=== PATIENT | female | born 1985 | race Caucasian/White ===

== ENCOUNTER 2020-02-20 09:58 | Observation (INO) ==
[2020-02-20 10:33] LABS: Bilirubin,Urine Moderate (Negative); Blood,Urine Negative (Negative); Clarity,Urine Turbid (Clear); Color,Urine Orange (Yellow); Glucose,Urine (UA) 100 mg/dL (Normal); Ketones,Urine Trace mg/dL (Negative); Leukocyte Esterase,Urine Small (Negative); Nitrite,Urine Positive (Negative); PH,Urine 5.5 pH Units (5.0-8.0); Protein,Urine 100 mg/dL (Neg-Trace); Specific Gravity,Urine > 1.030 (1.010-1.025)
[2020-02-20 10:37] LABS: Squamous Epithelial Cell,Urine Many per lpf (None-Few)
[2020-02-20 10:47] LABS: Basophils % 0.1 %; Hematocrit 37.2 % (35.3-44.9); Immature Granulocytes % 0.8 % (0-4); Lymphocytes # 1.1 K/mcL (0.6-4.6); Mean Corpuscular HGB Conc 32.5 g/dL (31.6-35.5); Mean Corpuscular Hemoglobin 28.8 pg (28.0-33.3); Mean Corpuscular Volume 88.6 fL (83.0-100.0); Mean Platelet Volume 10.5 fL (9.4-12.4); Monocytes % 9.7 %; Neutrophils # 17.6 K/mcL (1.6-8.9); Platelet Count 305 K/mcL (140-400); Red Cell Distribution Width 13.9 % (11.5-14.5); Segmented Neutrophils % 84.4 %; White Blood Count 20.8 K/mcL (4.3-11.1)
[2020-02-20 10:56] LABS: WBC,Urine 30-50 per hpf (0-3)
[2020-02-20 10:57] LABS: Bacteria,Urine Many per hpf (None-Few); RBC,Urine 0-3 per hpf (0-3)
[2020-02-20 11:03] LABS: Hemoglobin 12.1 g/dL (11.5-15.4)
[2020-02-20 11:17] LABS: Alanine Aminotransferase 7 Units/L (7-52); Albumin 3.4 g/dL (3.5-5.7); Albumin/Globulin Ratio 0.8 (1.1-2.2); Alkaline Phosphatase 131 Units/L (34-104); Amylase < 10 Units/L (29-103); Aspartate Amino Transferase 10 Units/L (13-39); BUN/Creatinine Ratio 6 (6-26); Bilirubin,Direct 0.4 mg/dL (0.0-0.2); Bilirubin,Indirect 0.3 mg/dL (0.0-1.0); Bilirubin,Total 0.7 mg/dL (0.3-1.0); Blood Urea Nitrogen 4 mg/dL (6-20); Calcium 9.1 mg/dL (8.6-10.3); Carbon Dioxide 29 mEq/L (23-29); Chloride 94 mEq/L (98-107); Globulin 4.2 g/dL (2.4-3.5); Glucose 131 mg/dL (70-105); Lipase 5 Units/L (11-82); Osmolality,Calculated 273 (280-300); Potassium 2.8 mEq/L (3.5-5.1); Sodium 132 mEq/L (136-145); Total Protein 7.6 g/dL (6.4-8.9); eGFR For African Americans > 60 (> 60); eGFR For Non-African Americans > 60 (> 60)
[2020-02-20] MEDS ORDERED: 0.9 % Sodium Chloride 1,000 ML IVC ONE (11:18)
[2020-02-20] MEDS ORDERED: Ondansetron 4 MG/2 ML VIAL IVP ONE ×2 (11:18→15:59)
[2020-02-20] MEDS ORDERED: Potassium Effervescent 25 MEQ TABLET.EFF PO ONE (11:18)
[2020-02-20] MEDS ORDERED: Isovue-370 500 ML BOTTLE IVP ONE (11:19)
[2020-02-20] MEDS ORDERED: cefTRIAXone 1,000 MG in 0.9 % Sodium Chloride Mini Bag 100 ML IVPB ONE (12:23)
[2020-02-20] MEDS ORDERED: Piperacillin/Tazobactam 3.375 GM in 0.9 % Sodium Chloride Mini Bag 100 ML IVPB ONE (12:31)
[2020-02-20] MEDS ORDERED: *HR* FentaNYL (PF) 100 MCG/2 ML VIAL ONE ×2 (14:29→17:32)
[2020-02-20] MEDS ORDERED: Lidocaine HCL 4 ML Topical Solution (Laryng-O-Jet Kit Sterile Pak) TP ONE (14:29)
[2020-02-20] MEDS ORDERED: *HR* Rocuronium Bromide 50 MG/5 ML VIAL ONE (14:29)
[2020-02-20] MEDS ORDERED: *HR* Midazolam HCl 2 MG/2 ML VIAL ONE (14:29)
[2020-02-20] MEDS ORDERED: *HR* Propofol 200 MG/20 ML VIAL IVP ONE (14:29)
[2020-02-20] MEDS ORDERED: Dexamethasone 4 MG/ML VIAL ONE (14:29)
[2020-02-20] MEDS ORDERED: Lidocaine -MPF 2% 2 ML VIAL ONE (14:29)
[2020-02-20] MEDS ORDERED: Ondansetron 4 MG/2 ML VIAL ONE (14:29)
[2020-02-20] MEDS ORDERED: *HR* OxyCODONE Immed Rel 5 MG TABLET PO PRN (15:59)
[2020-02-20] MEDS ORDERED: Ketorolac 30 MG/ML VIAL ONE (16:42)
[2020-02-20] MEDS ORDERED: Acetaminophen IV 1,000 MG/100 ML INFUS..BTL ONE (18:27)
[2020-02-20] MEDS: *HR* HYDROmorphone PF 0.5 MG/0.5 ML SYRINGE IVP PRN ×3 (18:55→19:15)
[2020-02-20] MEDS: 0.9 % Sodium Chloride 1,000 ML IVC SCH (20:41)
[2020-02-21] MEDS: Ampicillin/Sulbactam 3,000 MG in 0.9 % Sodium Chloride Mini Bag 100 ML IVPB SCH ×4 (00:12→17:13)
[2020-02-21] MEDS: Ketorolac 15 MG/ML VIAL IVP SCH ×4 (00:12→17:14)
[2020-02-21] MEDS: *HR* OxyCODONE/APAP 5/325 TABLET PO PRN ×2 (04:27→09:31)
[2020-02-21] MEDS: 0.9 % Sodium Chloride 1,000 ML IVC SCH ×3 (05:09→22:26)
[2020-02-21 07:47] LABS: Basophils % 0.1 %; Hematocrit 32.1 % (35.3-44.9); Immature Granulocytes % 0.7 % (0-4); Lymphocytes # 0.8 K/mcL (0.6-4.6); Mean Corpuscular HGB Conc 31.5 g/dL (31.6-35.5); Mean Corpuscular Hemoglobin 28.7 pg (28.0-33.3); Mean Corpuscular Volume 91.2 fL (83.0-100.0); Mean Platelet Volume 11.3 fL (9.4-12.4); Monocytes # 0.6 K/mcL (0.0-1.3); Monocytes % 4.1 %; Neutrophils # 13.5 K/mcL (1.6-8.9); Platelet Count 249 K/mcL (140-400); Red Blood Count 3.52 M/mcL (3.82-4.97); Red Cell Distribution Width 14.3 % (11.5-14.5); Segmented Neutrophils % 90.1 %; White Blood Count 14.9 K/mcL (4.3-11.1)
[2020-02-21 07:49] LABS: Hemoglobin 10.1 g/dL (11.5-15.4)
[2020-02-21] MEDS: Pantoprazole 40 MG VIAL IVP SCH (09:31)
[2020-02-22] MEDS: Ampicillin/Sulbactam 3,000 MG in 0.9 % Sodium Chloride Mini Bag 100 ML IVPB SCH ×2 (00:19→05:51)
[2020-02-22] MEDS: Ketorolac 15 MG/ML VIAL IVP SCH ×2 (00:19→05:51)
[2020-02-22] MEDS: *HR* OxyCODONE/APAP 5/325 TABLET PO PRN ×2 (01:01→09:14)
[2020-02-22 07:38] LABS: Basophils % 0.2 %; Hematocrit 31.3 % (35.3-44.9); Hemoglobin 10.1 g/dL (11.5-15.4); Immature Granulocytes % 1.3 % (0-4); Lymphocytes # 1.2 K/mcL (0.6-4.6); Lymphocytes % 11.1 %; Mean Corpuscular HGB Conc 32.3 g/dL (31.6-35.5); Mean Corpuscular Volume 89.9 fL (83.0-100.0); Mean Platelet Volume 10.4 fL (9.4-12.4); Monocytes # 0.9 K/mcL (0.0-1.3); Monocytes % 7.7 %; Neutrophils # 8.8 K/mcL (1.6-8.9); Platelet Count 276 K/mcL (140-400); Red Blood Count 3.48 M/mcL (3.82-4.97); Red Cell Distribution Width 14.3 % (11.5-14.5); Segmented Neutrophils % 79.7 %
[2020-02-22 07:47] VITALS: BP 127/83
[2020-02-22] MEDS: Pantoprazole 40 MG VIAL IVP SCH (09:14)
== END 2020-02-22 12:24 | disposition home or self-care (01) ==
LOC: EMEROOARM 09:58 → 3ANU 09:58
PROVIDERS: ADMIT Surgery; ATTEND Surgery

== ENCOUNTER 2020-03-03 19:49 | Inpatient (IN) ==
[2020-03-03] MEDS ORDERED: 0.9 % Sodium Chloride 1,000 ML IVC ONE (20:04)
[2020-03-03] MEDS ORDERED: Isovue-370 500 ML BOTTLE IVP ONE (20:05)
[2020-03-03] MEDS ORDERED: 0.9 % Sodium Chloride 1,000 ML ONE (20:10)
[2020-03-03] MEDS ORDERED: *HR* FentaNYL (PF) 100 MCG/2 ML VIAL IVP ONE (20:23)
[2020-03-03] MEDS ORDERED: Ondansetron 4 MG/2 ML VIAL IVP STA (20:23)
[2020-03-03 20:26] LABS: Bilirubin,Urine Negative (Negative); Blood,Urine Negative (Negative); Clarity,Urine Clear (Clear); Color,Urine Yellow (Yellow); Glucose,Urine (UA) Normal (Normal); Ketones,Urine Negative (Negative); Leukocyte Esterase,Urine Moderate (Negative); Nitrite,Urine Negative (Negative); PH,Urine 7.5 pH Units (5.0-8.0); Protein,Urine Negative (Neg-Trace); Specific Gravity,Urine 1.017 (1.010-1.025); Urobilinogen,Urine Normal (Normal)
[2020-03-03 20:28] LABS: Bacteria,Urine None Seen per hpf (None-Few); Hyaline Casts,Urine None Seen per lpf (None-Few); Squamous Epithelial Cell,Urine Many per lpf (None-Few); WBC,Urine 15-30 per hpf (0-3)
[2020-03-03 20:34] LABS: Basophils % 0.1 %; Eosinophils % 0.2 %; Hematocrit 37.9 % (35.3-44.9); Hemoglobin 11.7 g/dL (11.5-15.4); Immature Granulocytes % 0.6 % (0-4); Lymphocytes # 1.4 K/mcL (0.6-4.6); Lymphocytes % 7.5 %; Mean Corpuscular HGB Conc 30.9 g/dL (31.6-35.5); Mean Corpuscular Hemoglobin 27.9 pg (28.0-33.3); Mean Corpuscular Volume 90.2 fL (83.0-100.0); Mean Platelet Volume 10.6 fL (9.4-12.4); Monocytes # 0.9 K/mcL (0.0-1.3); Monocytes % 5.2 %; Neutrophils # 15.7 K/mcL (1.6-8.9); Platelet Count 497 K/mcL (140-400); Red Cell Distribution Width 15.1 % (11.5-14.5); Segmented Neutrophils % 86.4 %; White Blood Count 18.2 K/mcL (4.3-11.1)
[2020-03-03 20:41] LABS: INR 1.2; Prothrombin Time 13.3 Seconds (9.4-12.1)
[2020-03-03 20:44] LABS: RBC,Urine 0-3 per hpf (0-3)
[2020-03-03 20:44] LABS: Activated Partial Thrombo Time 33.1 Seconds (26.0-36.0)
[2020-03-03 21:00] LABS: Alanine Aminotransferase 29 Units/L (7-52); Albumin 3.5 g/dL (3.5-5.7); Albumin/Globulin Ratio 0.8 (1.1-2.2); Alkaline Phosphatase 196 Units/L (34-104); Aspartate Amino Transferase 49 Units/L (13-39); BUN/Creatinine Ratio 15 (6-26); Bilirubin,Direct 0.3 mg/dL (0.0-0.2); Bilirubin,Indirect 0.2 mg/dL (0.0-1.0); Bilirubin,Total 0.5 mg/dL (0.3-1.0); Blood Urea Nitrogen 7 mg/dL (6-20); Carbon Dioxide 23 mEq/L (23-29); Chloride 99 mEq/L (98-107); Globulin 4.6 g/dL (2.4-3.5); Glucose 104 mg/dL (70-105); Lipase 16 Units/L (11-82); Magnesium 1.8 mg/dL (1.6-2.6); Osmolality,Calculated 266 (280-300); Phosphorous 2.7 mg/dL (2.7-4.5); Potassium 3.9 mEq/L (3.5-5.1); Sodium 129 mEq/L (136-145); Total Protein 8.1 g/dL (6.4-8.9); Troponin I < 0.03 ng/mL (< 0.04); eGFR For African Americans > 60 (> 60); eGFR For Non-African Americans > 60 (> 60)
[2020-03-03] MEDS ORDERED: 0.9 % Sodium Chloride 1,000 ML IVC STA (21:29)
[2020-03-03] MEDS ORDERED: Piperacillin/Tazobactam 3.375 GM in 0.9 % Sodium Chloride Mini Bag 100 ML IVPB ONE (21:51)
[2020-03-03] MEDS ORDERED: Ibuprofen 800 MG TABLET PO ONE (22:54)
[2020-03-03] MEDS ORDERED: Ibuprofen 600 MG TABLET PO PRN (23:04)
[2020-03-03] MEDS ORDERED: 0.9 % Sodium Chloride 1,000 ML IVC SCH (23:30)
[2020-03-03] MEDS: *HR* OxyCODONE/APAP 10/325 TABLET PO PRN (23:52)
[2020-03-04 01:27] LABS: Basophils % 0.2 %; Eosinophils % 0.1 %; Hematocrit 32.2 % (35.3-44.9); Immature Granulocytes % 0.6 % (0-4); Lymphocytes # 1.6 K/mcL (0.6-4.6); Lymphocytes % 9.6 %; Mean Corpuscular HGB Conc 31.4 g/dL (31.6-35.5); Mean Corpuscular Hemoglobin 27.7 pg (28.0-33.3); Mean Corpuscular Volume 88.2 fL (83.0-100.0); Mean Platelet Volume 10.7 fL (9.4-12.4); Monocytes # 1.1 K/mcL (0.0-1.3); Monocytes % 6.2 %; Neutrophils # 14.1 K/mcL (1.6-8.9); Platelet Count 431 K/mcL (140-400); Red Blood Count 3.65 M/mcL (3.82-4.97); Red Cell Distribution Width 15.1 % (11.5-14.5); Segmented Neutrophils % 83.3 %
[2020-03-04 01:28] LABS: Hemoglobin 10.1 g/dL (11.5-15.4)
[2020-03-04 01:30] LABS: BUN/Creatinine Ratio 15 (6-26); Blood Urea Nitrogen 6 mg/dL (6-20); Calcium 7.9 mg/dL (8.6-10.3); Carbon Dioxide 20 mEq/L (23-29); Chloride 104 mEq/L (98-107); Glucose 96 mg/dL (70-105); Osmolality,Calculated 269 (280-300); Potassium 3.9 mEq/L (3.5-5.1); Sodium 131 mEq/L (136-145); eGFR For African Americans > 60 (> 60); eGFR For Non-African Americans > 60 (> 60)
[2020-03-04] MEDS: Piperacillin/Tazobactam 3.375 GM in 0.9 % Sodium Chloride Mini Bag 100 ML IVPB SCH ×4 (04:29→21:02)
[2020-03-04] MEDS ORDERED: 0.9 % Sodium Chloride 500 ML ONE (10:05)
[2020-03-04] MEDS ORDERED: *HR* FentaNYL (PF) 100 MCG/2 ML VIAL IVP ONE (10:23)
[2020-03-04] MEDS ORDERED: *HR* Midazolam HCl 2 MG/2 ML VIAL IVP ONE (10:23)
[2020-03-04] MEDS: Pantoprazole 40 MG VIAL IVP SCH (11:38)
[2020-03-04] MEDS: *HR* OxyCODONE/APAP 10/325 TABLET PO PRN ×3 (11:44→23:53)
[2020-03-04] MEDS: *HR* Heparin 5,000 UNIT/ML VIAL SQ SCH (16:47)
[2020-03-05] MEDS: Piperacillin/Tazobactam 3.375 GM in 0.9 % Sodium Chloride Mini Bag 100 ML IVPB SCH ×4 (03:39→23:40)
[2020-03-05] MEDS: *HR* Heparin 5,000 UNIT/ML VIAL SQ SCH ×2 (05:39→18:37)
[2020-03-05] MEDS: *HR* OxyCODONE/APAP 10/325 TABLET PO PRN (05:48)
[2020-03-05] MEDS: Ondansetron 4 MG/2 ML VIAL IVP PRN ×2 (05:48→19:26)
[2020-03-05 05:55] LABS: Basophils % 0.1 %; Eosinophils % 0.4 %; Hematocrit 30.5 % (35.3-44.9); Hemoglobin 9.9 g/dL (11.5-15.4); Immature Granulocytes % 0.4 % (0-4); Lymphocytes # 0.8 K/mcL (0.6-4.6); Lymphocytes % 8.4 %; Mean Corpuscular HGB Conc 32.5 g/dL (31.6-35.5); Mean Corpuscular Hemoglobin 28.4 pg (28.0-33.3); Mean Corpuscular Volume 87.6 fL (83.0-100.0); Monocytes # 0.8 K/mcL (0.0-1.3); Monocytes % 7.9 %; Neutrophils # 8.3 K/mcL (1.6-8.9); Platelet Count 375 K/mcL (140-400); Red Blood Count 3.48 M/mcL (3.82-4.97); Red Cell Distribution Width 15.1 % (11.5-14.5); Segmented Neutrophils % 82.8 %
[2020-03-05 06:14] LABS: BUN/Creatinine Ratio 7 (6-26); Blood Urea Nitrogen 3 mg/dL (6-20); Calcium 8.4 mg/dL (8.6-10.3); Carbon Dioxide 23 mEq/L (23-29); Chloride 97 mEq/L (98-107); Glucose 122 mg/dL (70-105); Osmolality,Calculated 262 (280-300); Potassium 3.7 mEq/L (3.5-5.1); Sodium 127 mEq/L (136-145); eGFR For African Americans > 60 (> 60); eGFR For Non-African Americans > 60 (> 60)
[2020-03-05] MEDS: Pantoprazole 40 MG VIAL IVP SCH (09:17)
[2020-03-05] MEDS: polyethylene glycoL 3350 17 GM POWD.PACK PO SCH (11:46)
[2020-03-05] MEDS: Acetaminophen 325 MG TABLET PO PRN (19:26)
[2020-03-06] MEDS: *HR* Heparin 5,000 UNIT/ML VIAL SQ SCH ×2 (05:45→17:26)
[2020-03-06] MEDS: Piperacillin/Tazobactam 3.375 GM in 0.9 % Sodium Chloride Mini Bag 100 ML IVPB SCH ×3 (05:45→17:25)
[2020-03-06 06:55] LABS: Basophils % 0.2 %; Eosinophils # 0.1 K/mcL (0.0-0.6); Eosinophils % 1.6 %; Hematocrit 34.7 % (35.3-44.9); Hemoglobin 10.7 g/dL (11.5-15.4); Immature Granulocytes % 0.2 % (0-4); Lymphocytes # 1.1 K/mcL (0.6-4.6); Lymphocytes % 24.7 %; Mean Corpuscular HGB Conc 30.8 g/dL (31.6-35.5); Mean Corpuscular Hemoglobin 27.3 pg (28.0-33.3); Mean Corpuscular Volume 88.5 fL (83.0-100.0); Mean Platelet Volume 12.2 fL (9.4-12.4); Monocytes # 0.6 K/mcL (0.0-1.3); Monocytes % 13.3 %; Platelet Count 301 K/mcL (140-400); Red Blood Count 3.92 M/mcL (3.82-4.97)
[2020-03-06 07:00] LABS: Neutrophils # 2.6 K/mcL (1.6-8.9); White Blood Count 4.4 K/mcL (4.3-11.1)
[2020-03-06 07:13] LABS: BUN/Creatinine Ratio 9 (6-26); Blood Urea Nitrogen 4 mg/dL (6-20); Carbon Dioxide 26 mEq/L (23-29); Chloride 101 mEq/L (98-107); Glucose 114 mg/dL (70-105); Osmolality,Calculated 276 (280-300); Potassium 3.9 mEq/L (3.5-5.1); Sodium 134 mEq/L (136-145); eGFR For African Americans > 60 (> 60); eGFR For Non-African Americans > 60 (> 60)
[2020-03-06] MEDS: Pantoprazole 40 MG VIAL IVP SCH (08:20)
[2020-03-06] MEDS: polyethylene glycoL 3350 17 GM POWD.PACK PO SCH (08:20)
[2020-03-06] MEDS: Acetaminophen 325 MG TABLET PO PRN (17:28)
[2020-03-07] MEDS: Piperacillin/Tazobactam 3.375 GM in 0.9 % Sodium Chloride Mini Bag 100 ML IVPB SCH ×2 (00:27→07:50)
[2020-03-07] MEDS: *HR* Heparin 5,000 UNIT/ML VIAL SQ SCH (05:50)
[2020-03-07 07:42] VITALS: BP 129/79
[2020-03-07] MEDS: Pantoprazole 40 MG VIAL IVP SCH (07:51)
[2020-03-07] MEDS: polyethylene glycoL 3350 17 GM POWD.PACK PO SCH (07:51)
[2020-03-07] MEDS ORDERED: Sulfamethoxazole/Trimeth DS 1 EACH TABLET PO ONE (09:17)
== END 2020-03-07 10:43 | disposition home or self-care (01) | DRG 721 ==
LOC: 3ANU 19:49 → EMEROOARM 19:49 → 3ANU 23:06
PROVIDERS: ADMIT Surgery; ATTEND Nurse Practitioner Family
PROC: IRDRAIN (2020-03-04 10:00)

== ENCOUNTER 2020-04-29 23:05 | Observation (INO) ==
[2020-04-29] MEDS ORDERED: 0.9 % Sodium Chloride 1,000 ML IVC ONE (23:37)
[2020-04-29] MEDS ORDERED: Isovue-370 500 ML BOTTLE IVP ONE (23:43)
[2020-04-30 00:49] LABS: Alanine Aminotransferase 7 Units/L (7-52); Albumin 3.6 g/dL (3.5-5.7); Albumin/Globulin Ratio 0.9 (1.1-2.2); Alkaline Phosphatase 109 Units/L (34-104); Aspartate Amino Transferase 34 Units/L (13-39); BUN/Creatinine Ratio 18 (6-26); Bilirubin,Indirect 0.3 mg/dL (0.0-1.0); Bilirubin,Total 0.3 mg/dL (0.3-1.0); Blood Urea Nitrogen 9 mg/dL (6-20); Calcium 9.4 mg/dL (8.6-10.3); Carbon Dioxide 21 mEq/L (23-29); Chloride 103 mEq/L (98-107); Globulin 4.1 g/dL (2.4-3.5); Glucose 95 mg/dL (70-105); Lipase 35 Units/L (11-82); Osmolality,Calculated 278 (280-300); Potassium 4.7 mEq/L (3.5-5.1); Sodium 135 mEq/L (136-145); Total Protein 7.7 g/dL (6.4-8.9); eGFR For African Americans > 60 (> 60); eGFR For Non-African Americans > 60 (> 60)
[2020-04-30 01:08] LABS: Bacteria,Urine Few per hpf (None-Few); Bilirubin,Urine Negative (Negative); Blood,Urine Moderate (Negative); Clarity,Urine Clear (Clear); Color,Urine Light-Yellow (Yellow); Glucose,Urine (UA) Normal (Normal); Ketones,Urine Negative (Negative); Leukocyte Esterase,Urine Negative (Negative); Nitrite,Urine Negative (Negative); Protein,Urine Negative (Neg-Trace); RBC,Urine 0-3 per hpf (0-3); Specific Gravity,Urine 1.009 (1.010-1.025); Squamous Epithelial Cell,Urine Few per hpf (None-Few); Urobilinogen,Urine Normal (Normal)
[2020-04-30 01:32] LABS: Basophils % 0.2 %; Eosinophils # 0.2 K/mcL (0.0-0.6); Eosinophils % 1.2 %; Hematocrit 38.6 % (35.3-44.9); Hemoglobin 12.5 g/dL (11.5-15.4); Immature Granulocytes % 0.4 % (0-4); Lymphocytes # 2.5 K/mcL (0.6-4.6); Lymphocytes % 20.5 %; Mean Corpuscular HGB Conc 32.4 g/dL (31.6-35.5); Mean Corpuscular Hemoglobin 27.8 pg (28.0-33.3); Mean Platelet Volume 10.5 fL (9.4-12.4); Monocytes # 0.9 K/mcL (0.0-1.3); Monocytes % 7.3 %; Neutrophils # 8.5 K/mcL (1.6-8.9); Platelet Count 279 K/mcL (140-400); Red Blood Count 4.49 M/mcL (3.82-4.97); Red Cell Distribution Width 14.9 % (11.5-14.5); Segmented Neutrophils % 70.4 %; White Blood Count 12.1 K/mcL (4.3-11.1)
[2020-04-30] MEDS ORDERED: Piperacillin/Tazobactam 3.375 GM in 0.9 % Sodium Chloride Mini Bag 100 ML IVPB ONE (03:14)
[2020-04-30] MEDS ORDERED: Vancomycin 1,750 MG/517.5 ML IV.SOLN IVPB ONE (04:00)
[2020-04-30] MEDS ORDERED: Naloxone 0.4 MG/ML INJ IVP PRN (05:10)
[2020-04-30 05:30] LABS: Prothrombin Time 11.5 Seconds (9.4-12.1)
[2020-04-30 05:33] LABS: Activated Partial Thrombo Time 32.3 Seconds (26.0-36.0)
[2020-04-30] MEDS ORDERED: *HR* Promethazine 25 MG/ML VIAL IVP PRN (06:00)
[2020-04-30] MEDS: 0.9 % Sodium Chloride 1,000 ML IVC SCH ×2 (06:49→15:53)
[2020-04-30] MEDS: Nicotine 7 MG PATCH.TD24 TD SCH (08:33)
[2020-04-30] MEDS: Piperacillin/Tazobactam 3.375 GM in 0.9 % Sodium Chloride Mini Bag 100 ML IVPB SCH ×2 (11:43→17:36)
[2020-04-30] MEDS ORDERED: Aminoglycoside Consult 1 EACH MC ONE (15:31)
[2020-04-30] MEDS: Vancomycin 1,250 MG/262.5 ML IV.SOLN IVPB SCH (15:51)
[2020-04-30] MEDS: *HR* OxyCODONE Immed Rel 5 MG TABLET PO PRN (17:36)
[2020-05-01] MEDS: *HR* OxyCODONE Immed Rel 5 MG TABLET PO PRN (00:15)
[2020-05-01] MEDS: Vancomycin 1,250 MG/262.5 ML IV.SOLN IVPB SCH (03:38)
[2020-05-01] MEDS: Piperacillin/Tazobactam 3.375 GM in 0.9 % Sodium Chloride Mini Bag 100 ML IVPB SCH ×2 (03:38→11:28)
[2020-05-01 07:16] LABS: Basophils % 0.2 %; Eosinophils # 0.1 K/mcL (0.0-0.6); Eosinophils % 0.9 %; Hematocrit 34.5 % (35.3-44.9); Immature Granulocytes % 0.2 % (0-4); Lymphocytes # 1.9 K/mcL (0.6-4.6); Mean Corpuscular HGB Conc 31.9 g/dL (31.6-35.5); Mean Corpuscular Hemoglobin 27.6 pg (28.0-33.3); Mean Corpuscular Volume 86.5 fL (83.0-100.0); Mean Platelet Volume 10.9 fL (9.4-12.4); Monocytes # 0.8 K/mcL (0.0-1.3); Neutrophils # 6.6 K/mcL (1.6-8.9); Platelet Count 231 K/mcL (140-400); Red Blood Count 3.99 M/mcL (3.82-4.97); Red Cell Distribution Width 15.1 % (11.5-14.5); Segmented Neutrophils % 70.7 %; White Blood Count 9.4 K/mcL (4.3-11.1)
[2020-05-01 07:22] LABS: INR 1.1; Prothrombin Time 12.3 Seconds (9.4-12.1)
[2020-05-01] MEDS: Nicotine 7 MG PATCH.TD24 TD SCH (07:35)
[2020-05-01 08:05] LABS: BUN/Creatinine Ratio 12 (6-26); Blood Urea Nitrogen 6 mg/dL (6-20); Calcium 8.3 mg/dL (8.6-10.3); Carbon Dioxide 22 mEq/L (23-29); Chloride 103 mEq/L (98-107); Glucose 99 mg/dL (70-105); Magnesium 1.8 mg/dL (1.6-2.6); Osmolality,Calculated 272 (280-300); Phosphorous 2.8 mg/dL (2.7-4.5); Potassium 3.3 mEq/L (3.5-5.1); Sodium 132 mEq/L (136-145); eGFR For African Americans > 60 (> 60); eGFR For Non-African Americans > 60 (> 60)
[2020-05-01] MEDS ORDERED: Potassium Chloride Elixir 20 MEQ/15 ML UDC PO ONE (08:22)
[2020-05-01 10:46] VITALS: BP 105/71
[2020-05-01] MEDS ORDERED: Acetaminophen 325 MG TABLET PO PRN (11:52)
== END 2020-05-01 15:32 | disposition home or self-care (01) ==
LOC: EMEROOARM 23:05 → 3ANU 23:05 → SUATTDRO 04-30 03:58 → 3ANU 04-30 04:37
PROVIDERS: ADMIT Student in an Organized Health Care Education/Training Program; ATTEND Internal Medicine

== ENCOUNTER 2020-09-13 12:01 | Inpatient (IN) ==
[2020-09-13 12:38] LABS: Bilirubin,Urine Negative (Negative); Blood,Urine Negative (Negative); Clarity,Urine Clear (Clear); Color,Urine Light-Yellow (Yellow); Glucose,Urine (UA) Normal (Normal); Ketones,Urine Negative (Negative); Leukocyte Esterase,Urine Negative (Negative); Nitrite,Urine Negative (Negative); Protein,Urine Negative (Neg-Trace); Urobilinogen,Urine Normal (Normal)
[2020-09-13] MEDS ORDERED: 0.9 % Sodium Chloride 1,000 ML IVC ONE (12:49)
[2020-09-13] MEDS ORDERED: Ketorolac 30 MG/ML VIAL IVP ONE (12:49)
[2020-09-13] MEDS ORDERED: Ondansetron 4 MG/2 ML VIAL IVP ONE (12:49)
[2020-09-13 13:36] LABS: Alanine Aminotransferase 8 Units/L (7-52); Albumin 3.4 g/dL (3.5-5.7); Albumin/Globulin Ratio 0.8 (1.1-2.2); Alkaline Phosphatase 141 Units/L (34-104); Amylase 22 Units/L (29-103); Aspartate Amino Transferase 14 Units/L (13-39); BUN/Creatinine Ratio 5 (6-26); Bilirubin,Indirect 0.2 mg/dL (0.0-1.0); Bilirubin,Total 0.2 mg/dL (0.3-1.0); Blood Urea Nitrogen 3 mg/dL (6-20); Carbon Dioxide 26 mEq/L (23-29); Chloride 102 mEq/L (98-107); Globulin 4.2 g/dL (2.4-3.5); Glucose 82 mg/dL (70-105); Lipase 6 Units/L (11-82); Osmolality,Calculated 278 (280-300); Potassium 3.2 mEq/L (3.5-5.1); Sodium 136 mEq/L (136-145); Total Protein 7.6 g/dL (6.4-8.9); eGFR For African Americans > 60 (> 60); eGFR For Non-African Americans > 60 (> 60)
[2020-09-13 13:39] LABS: Basophils % 0.2 %; Eosinophils # 0.1 K/mcL (0.0-0.6); Eosinophils % 0.9 %; Hematocrit 39.9 % (35.3-44.9); Hemoglobin 12.2 g/dL (11.5-15.4); Immature Granulocytes % 0.3 % (0-4); Lymphocytes # 1.1 K/mcL (0.6-4.6); Lymphocytes % 11.5 %; Mean Corpuscular HGB Conc 30.6 g/dL (31.6-35.5); Mean Corpuscular Volume 84.9 fL (83.0-100.0); Mean Platelet Volume 10.2 fL (9.4-12.4); Monocytes # 0.7 K/mcL (0.0-1.3); Monocytes % 7.4 %; Neutrophils # 7.3 K/mcL (1.6-8.9); Platelet Count 417 K/mcL (140-400); Red Cell Distribution Width 14.8 % (11.5-14.5); Segmented Neutrophils % 79.7 %; White Blood Count 9.2 K/mcL (4.3-11.1)
[2020-09-13] MEDS ORDERED: Piperacillin/Tazobactam 3.375 GM in 0.9 % Sodium Chloride Mini Bag 100 ML IVPB ONE (15:47)
[2020-09-13] MEDS ORDERED: Ondansetron 4 MG/2 ML VIAL IVP PRN (15:48)
[2020-09-13] MEDS ORDERED: Naloxone 0.4 MG/ML INJ IVP PRN (15:48)
[2020-09-13] MEDS ORDERED: Potassium Chloride Elixir 20 MEQ/15 ML UDC PO SCH (16:00)
[2020-09-13] MEDS ORDERED: Isovue-370 500 ML BOTTLE IVP ONE (16:42)
[2020-09-13] MEDS: Nicotine 21 MG PATCH.TD24 TD SCH (18:47)
[2020-09-13 18:54] LABS: INR 1.2; Prothrombin Time 13.9 Seconds (9.4-12.1)
[2020-09-13] MEDS: Piperacillin/Tazobactam 3.375 GM in 0.9 % Sodium Chloride Mini Bag 100 ML IVPB SCH (22:28)
[2020-09-13] MEDS: Ketorolac 15 MG/ML VIAL IVP PRN (22:41)
[2020-09-14] MEDS: Piperacillin/Tazobactam 3.375 GM in 0.9 % Sodium Chloride Mini Bag 100 ML IVPB SCH ×3 (05:57→22:42)
[2020-09-14] MEDS: Ketorolac 15 MG/ML VIAL IVP PRN ×3 (09:26→23:57)
[2020-09-14] MEDS: Nicotine 21 MG PATCH.TD24 TD SCH (09:26)
[2020-09-14 10:03] LABS: Basophils % 0.2 %; Eosinophils # 0.1 K/mcL (0.0-0.6); Hematocrit 35.8 % (35.3-44.9); Immature Granulocytes % 0.4 % (0-4); Lymphocytes # 1.3 K/mcL (0.6-4.6); Lymphocytes % 13.2 %; Mean Corpuscular HGB Conc 29.6 g/dL (31.6-35.5); Mean Corpuscular Hemoglobin 25.1 pg (28.0-33.3); Mean Corpuscular Volume 84.8 fL (83.0-100.0); Mean Platelet Volume 9.8 fL (9.4-12.4); Monocytes # 0.8 K/mcL (0.0-1.3); Monocytes % 7.5 %; Neutrophils # 7.8 K/mcL (1.6-8.9); Platelet Count 348 K/mcL (140-400); Red Blood Count 4.22 M/mcL (3.82-4.97); Red Cell Distribution Width 14.9 % (11.5-14.5); Segmented Neutrophils % 77.7 %
[2020-09-14 10:05] LABS: Hemoglobin 10.6 g/dL (11.5-15.4)
[2020-09-14 10:21] LABS: BUN/Creatinine Ratio 11 (6-26); Blood Urea Nitrogen 6 mg/dL (6-20); Calcium 8.4 mg/dL (8.6-10.3); Carbon Dioxide 24 mEq/L (23-29); Chloride 103 mEq/L (98-107); Glucose 86 mg/dL (70-105); Magnesium 1.8 mg/dL (1.6-2.6); Osmolality,Calculated 275 (280-300); Phosphorous 2.8 mg/dL (2.7-4.5); Potassium 3.8 mEq/L (3.5-5.1); Sodium 134 mEq/L (136-145); eGFR For African Americans > 60 (> 60); eGFR For Non-African Americans > 60 (> 60)
[2020-09-15] MEDS: Piperacillin/Tazobactam 3.375 GM in 0.9 % Sodium Chloride Mini Bag 100 ML IVPB SCH ×3 (05:38→21:21)
[2020-09-15 08:47] LABS: Basophils % 0.2 %; Eosinophils # 0.1 K/mcL (0.0-0.6); Eosinophils % 1.5 %; Hematocrit 36.6 % (35.3-44.9); Immature Granulocytes % 0.3 % (0-4); Lymphocytes # 1.2 K/mcL (0.6-4.6); Lymphocytes % 13.7 %; Mean Corpuscular HGB Conc 30.1 g/dL (31.6-35.5); Mean Corpuscular Hemoglobin 24.8 pg (28.0-33.3); Mean Corpuscular Volume 82.6 fL (83.0-100.0); Mean Platelet Volume 9.9 fL (9.4-12.4); Monocytes # 0.5 K/mcL (0.0-1.3); Monocytes % 5.7 %; Neutrophils # 6.7 K/mcL (1.6-8.9); Platelet Count 326 K/mcL (140-400); Red Blood Count 4.43 M/mcL (3.82-4.97); Red Cell Distribution Width 14.7 % (11.5-14.5); Segmented Neutrophils % 78.6 %; White Blood Count 8.6 K/mcL (4.3-11.1)
[2020-09-15 09:03] LABS: BUN/Creatinine Ratio 7 (6-26); Blood Urea Nitrogen 4 mg/dL (6-20); Calcium 8.5 mg/dL (8.6-10.3); Carbon Dioxide 24 mEq/L (23-29); Chloride 103 mEq/L (98-107); Glucose 112 mg/dL (70-105); Magnesium 1.8 mg/dL (1.6-2.6); Osmolality,Calculated 276 (280-300); Potassium 3.7 mEq/L (3.5-5.1); Sodium 134 mEq/L (136-145); eGFR For African Americans > 60 (> 60); eGFR For Non-African Americans > 60 (> 60)
[2020-09-15] MEDS: Ketorolac 15 MG/ML VIAL IVP PRN ×2 (09:49→18:05)
[2020-09-15] MEDS: Nicotine 21 MG PATCH.TD24 TD SCH (09:49)
[2020-09-16 02:22] LABS: Basophils % 0.3 %; Eosinophils # 0.2 K/mcL (0.0-0.6); Eosinophils % 1.9 %; Hematocrit 33.6 % (35.3-44.9); Hemoglobin 10.2 g/dL (11.5-15.4); Immature Granulocytes % 0.3 % (0-4); Lymphocytes # 1.4 K/mcL (0.6-4.6); Lymphocytes % 17.5 %; Mean Corpuscular HGB Conc 30.4 g/dL (31.6-35.5); Mean Corpuscular Hemoglobin 25.1 pg (28.0-33.3); Mean Corpuscular Volume 82.8 fL (83.0-100.0); Mean Platelet Volume 9.7 fL (9.4-12.4); Monocytes # 0.8 K/mcL (0.0-1.3); Monocytes % 9.9 %; Neutrophils # 5.6 K/mcL (1.6-8.9); Platelet Count 293 K/mcL (140-400); Red Blood Count 4.06 M/mcL (3.82-4.97); Red Cell Distribution Width 14.8 % (11.5-14.5); Segmented Neutrophils % 70.1 %
[2020-09-16 02:43] LABS: BUN/Creatinine Ratio 11 (6-26); Blood Urea Nitrogen 6 mg/dL (6-20); Calcium 8.3 mg/dL (8.6-10.3); Carbon Dioxide 24 mEq/L (23-29); Chloride 102 mEq/L (98-107); Glucose 117 mg/dL (70-105); Magnesium 1.7 mg/dL (1.6-2.6); Osmolality,Calculated 277 (280-300); Potassium 3.8 mEq/L (3.5-5.1); Sodium 134 mEq/L (136-145); eGFR For African Americans > 60 (> 60); eGFR For Non-African Americans > 60 (> 60)
[2020-09-16] MEDS: Ketorolac 15 MG/ML VIAL IVP PRN ×3 (04:40→19:53)
[2020-09-16] MEDS: Piperacillin/Tazobactam 3.375 GM in 0.9 % Sodium Chloride Mini Bag 100 ML IVPB SCH ×3 (04:41→22:54)
[2020-09-16] MEDS: Nicotine 21 MG PATCH.TD24 TD SCH (07:43)
[2020-09-16] MEDS: BuPROPion XL (24 HR) 150 MG TABLET PO SCH (07:43)
[2020-09-17] MEDS: Piperacillin/Tazobactam 3.375 GM in 0.9 % Sodium Chloride Mini Bag 100 ML IVPB SCH ×3 (05:56→21:32)
[2020-09-17] MEDS: Ketorolac 15 MG/ML VIAL IVP PRN ×2 (05:57→15:32)
[2020-09-17 08:18] LABS: Basophils % 0.3 %; Eosinophils # 0.1 K/mcL (0.0-0.6); Eosinophils % 2.2 %; Hematocrit 33.4 % (35.3-44.9); Hemoglobin 9.9 g/dL (11.5-15.4); Immature Granulocytes % 0.3 % (0-4); Lymphocytes # 1.3 K/mcL (0.6-4.6); Lymphocytes % 19.4 %; Mean Corpuscular HGB Conc 29.6 g/dL (31.6-35.5); Mean Corpuscular Hemoglobin 25.1 pg (28.0-33.3); Mean Corpuscular Volume 84.6 fL (83.0-100.0); Mean Platelet Volume 10.1 fL (9.4-12.4); Monocytes # 0.5 K/mcL (0.0-1.3); Monocytes % 8.2 %; Neutrophils # 4.5 K/mcL (1.6-8.9); Platelet Count 268 K/mcL (140-400); Red Blood Count 3.95 M/mcL (3.82-4.97); Red Cell Distribution Width 14.9 % (11.5-14.5); Segmented Neutrophils % 69.6 %; White Blood Count 6.5 K/mcL (4.3-11.1)
[2020-09-17 08:22] LABS: BUN/Creatinine Ratio 13 (6-26); Blood Urea Nitrogen 8 mg/dL (6-20); Calcium 8.5 mg/dL (8.6-10.3); Carbon Dioxide 25 mEq/L (23-29); Chloride 102 mEq/L (98-107); Glucose 91 mg/dL (70-105); Osmolality,Calculated 276 (280-300); Potassium 3.4 mEq/L (3.5-5.1); Sodium 134 mEq/L (136-145); eGFR For African Americans > 60 (> 60); eGFR For Non-African Americans > 60 (> 60)
[2020-09-17] MEDS: BuPROPion XL (24 HR) 150 MG TABLET PO SCH (09:25)
[2020-09-17] MEDS: Nicotine 21 MG PATCH.TD24 TD SCH (09:26)
[2020-09-18] MEDS ORDERED: Acetaminophen 325 MG TABLET PO PRN ×2 (01:42→12:25)
[2020-09-18] MEDS: Ketorolac 15 MG/ML VIAL IVP PRN (03:17)
[2020-09-18 04:57] LABS: Basophils % 0.3 %; Eosinophils # 0.2 K/mcL (0.0-0.6); Eosinophils % 2.5 %; Hematocrit 33.6 % (35.3-44.9); Hemoglobin 10.3 g/dL (11.5-15.4); Immature Granulocytes % 0.2 % (0-4); Lymphocytes # 1.6 K/mcL (0.6-4.6); Lymphocytes % 26.9 %; Mean Corpuscular HGB Conc 30.7 g/dL (31.6-35.5); Mean Corpuscular Hemoglobin 25.9 pg (28.0-33.3); Mean Corpuscular Volume 84.4 fL (83.0-100.0); Mean Platelet Volume 9.5 fL (9.4-12.4); Monocytes # 0.5 K/mcL (0.0-1.3); Monocytes % 8.8 %; Neutrophils # 3.7 K/mcL (1.6-8.9); Platelet Count 322 K/mcL (140-400); Red Blood Count 3.98 M/mcL (3.82-4.97); Red Cell Distribution Width 14.9 % (11.5-14.5); Segmented Neutrophils % 61.3 %; White Blood Count 6.1 K/mcL (4.3-11.1)
[2020-09-18 05:17] LABS: BUN/Creatinine Ratio 21 (6-26); Blood Urea Nitrogen 12 mg/dL (6-20); Calcium 8.8 mg/dL (8.6-10.3); Carbon Dioxide 25 mEq/L (23-29); Chloride 104 mEq/L (98-107); Glucose 95 mg/dL (70-105); Osmolality,Calculated 280 (280-300); Sodium 135 mEq/L (136-145); eGFR For African Americans > 60 (> 60); eGFR For Non-African Americans > 60 (> 60)
[2020-09-18] MEDS: Piperacillin/Tazobactam 3.375 GM in 0.9 % Sodium Chloride Mini Bag 100 ML IVPB SCH ×3 (06:04→21:31)
[2020-09-18] MEDS: Nicotine 21 MG PATCH.TD24 TD SCH (09:35)
[2020-09-18] MEDS: BuPROPion XL (24 HR) 150 MG TABLET PO SCH (09:35)
[2020-09-18] MEDS: *HR* OxyCODONE/APAP 5/325 TABLET PO PRN ×2 (15:40→23:41)
[2020-09-19 05:47] LABS: Basophils % 0.5 %; Eosinophils # 0.2 K/mcL (0.0-0.6); Hematocrit 35.7 % (35.3-44.9); Immature Granulocytes % 0.5 % (0-4); Lymphocytes # 1.9 K/mcL (0.6-4.6); Lymphocytes % 29.3 %; Mean Corpuscular HGB Conc 30.8 g/dL (31.6-35.5); Mean Corpuscular Volume 81.1 fL (83.0-100.0); Mean Platelet Volume 10.6 fL (9.4-12.4); Monocytes # 0.6 K/mcL (0.0-1.3); Monocytes % 9.4 %; Neutrophils # 3.7 K/mcL (1.6-8.9); Platelet Count 349 K/mcL (140-400); Red Cell Distribution Width 15.1 % (11.5-14.5); Segmented Neutrophils % 57.3 %; White Blood Count 6.4 K/mcL (4.3-11.1)
[2020-09-19] MEDS: Piperacillin/Tazobactam 3.375 GM in 0.9 % Sodium Chloride Mini Bag 100 ML IVPB SCH (05:52)
[2020-09-19 07:55] VITALS: BP 106/71
[2020-09-19] MEDS: metroNIDAZOLE 500 MG TABLET PO SCH ×2 (09:36→15:46)
[2020-09-19] MEDS: Nicotine 21 MG PATCH.TD24 TD SCH (09:36)
[2020-09-19] MEDS: BuPROPion XL (24 HR) 150 MG TABLET PO SCH (09:36)
[2020-09-19] MEDS: ceFAZolin 2,000 MG in 0.9 % Sodium Chloride 100 ML IVPB SCH ×2 (10:03→15:46)
[2020-09-19] MEDS: *HR* OxyCODONE/APAP 5/325 TABLET PO PRN (15:46)
== END 2020-09-19 16:55 | disposition home or self-care (01) | DRG 721 ==
LOC: 3ANU 12:01 → EMEROOARM 12:01 → 3ANU 17:50 → SUATTDRO 09-15 13:12
PROVIDERS: ADMIT Student in an Organized Health Care Education/Training Program; ATTEND Internal Medicine
PROC: IRDRAIN (2020-09-16 12:00)

== ENCOUNTER 2021-08-05 20:35 | Observation (INO) ==
[2021-08-06 00:13] LABS: Bilirubin,Urine Negative (Negative); Blood,Urine Negative (Negative); Clarity,Urine Clear (Clear); Color,Urine Light-Yellow (Yellow); Glucose,Urine (UA) Normal (Normal); Ketones,Urine Negative (Negative); Leukocyte Esterase,Urine Negative (Negative); Nitrite,Urine Negative (Negative); Protein,Urine Negative (Neg-Trace); Specific Gravity,Urine 1.016 (1.010-1.025)
[2021-08-06] MEDS ORDERED: Isovue-370 500 ML BOTTLE IVP ONE (00:31)
[2021-08-06 00:40] LABS: Basophils % 0.2 %; Eosinophils # 0.1 K/mcL (0.0-0.6); Hematocrit 37.3 % (35.3-44.9); Hemoglobin 11.9 g/dL (11.5-15.4); Immature Granulocytes % 0.4 % (0-4); Lymphocytes % 17.4 %; Mean Corpuscular HGB Conc 31.9 g/dL (31.6-35.5); Mean Corpuscular Hemoglobin 27.4 pg (28.0-33.3); Mean Corpuscular Volume 85.7 fL (83.0-100.0); Mean Platelet Volume 10.2 fL (9.4-12.4); Monocytes # 0.9 K/mcL (0.0-1.3); Monocytes % 7.8 %; Neutrophils # 8.3 K/mcL (1.6-8.9); Platelet Count 321 K/mcL (140-400); Red Blood Count 4.35 M/mcL (3.82-4.97); Red Cell Distribution Width 13.5 % (11.5-14.5); Segmented Neutrophils % 73.2 %; White Blood Count 11.3 K/mcL (4.3-11.1)
[2021-08-06] MEDS ORDERED: 0.9 % Sodium Chloride 1,000 ML IV ONE (00:41)
[2021-08-06] MEDS ORDERED: Morphine Sulfate 2 MG/ML SYRINGE IVP ONE (00:41)
[2021-08-06 00:48] LABS: INR 1.1; Prothrombin Time 11.8 Seconds (9.4-12.1)
[2021-08-06 00:51] LABS: Activated Partial Thrombo Time 31.1 Seconds (26.0-36.0)
[2021-08-06 01:03] LABS: Alanine Aminotransferase 3 Units/L (7-52); Albumin 3.4 g/dL (3.5-5.7); Albumin/Globulin Ratio 0.8 (1.1-2.2); Alkaline Phosphatase 97 Units/L (34-104); Aspartate Amino Transferase 14 Units/L (13-39); BUN/Creatinine Ratio 11 (6-26); Bilirubin,Indirect 0.3 mg/dL (0.0-1.0); Bilirubin,Total 0.3 mg/dL (0.3-1.0); Blood Urea Nitrogen 6 mg/dL (6-20); Calcium 8.6 mg/dL (8.6-10.3); Carbon Dioxide 27 mEq/L (23-29); Chloride 98 mEq/L (98-107); Globulin 4.1 g/dL (2.4-3.5); Glucose 81 mg/dL (70-105); Lipase 17 Units/L (11-82); Osmolality,Calculated 275 (280-300); Potassium 3.3 mEq/L (3.5-5.1); Sodium 134 mEq/L (136-145); Total Protein 7.5 g/dL (6.4-8.9); eGFR For African Americans > 60 (> 60); eGFR For Non-African Americans > 60 (> 60)
[2021-08-06] MEDS ORDERED: Piperacillin/Tazobactam 3.375 GM in Water for inj. (sterile) 20 ML IVP ONE (01:50)
[2021-08-06] MEDS ORDERED: Ondansetron 4 MG/2 ML VIAL IVP PRN (04:57)
[2021-08-06] MEDS ORDERED: Naloxone 0.4 MG/ML INJ IVP PRN (04:57)
[2021-08-06] MEDS ORDERED: Melatonin 3 MG TABLET PO PRN (04:57)
[2021-08-06] MEDS ORDERED: Nicotine 21 MG PATCH.TD24 TD PRN (04:58)
[2021-08-06] MEDS: Ringers Solution, Lactated 1,000 ML IVC SCH ×2 (05:47→16:54)
[2021-08-06] MEDS ORDERED: Ketorolac 15 MG/ML VIAL IVP PRN (06:00)
[2021-08-06] MEDS ORDERED: Vancomycin 1,500 MG/265 ML IV.SOLN IVPB ONE (06:00)
[2021-08-06] MEDS ORDERED: Acetaminophen 325 MG TABLET PO PRN (06:00)
[2021-08-06] MEDS: Piperacillin/Tazobactam 3.375 GM in 0.9 % Sodium Chloride Mini Bag 100 ML IVPB SCH ×2 (09:55→16:55)
[2021-08-06] MEDS ORDERED: Vancomycin 1,250 MG/262.5 ML IV.SOLN IVPB SCH (18:00)
[2021-08-06 19:58] LABS: Hepatitis B Surface Antigen Nonreactive (Nonreactive)
[2021-08-06 20:28] LABS: Hepatitis A Antibody IgM Nonreactive (Nonreactive); Hepatitis B Core IgM Nonreactive (Nonreactive)
[2021-08-07] MEDS: Piperacillin/Tazobactam 3.375 GM in 0.9 % Sodium Chloride Mini Bag 100 ML IVPB SCH ×2 (00:06→09:05)
[2021-08-07 02:40] LABS: Hepatitis C Virus Antibody Reactive (Nonreactive)
[2021-08-07 02:59] LABS: Basophils % 0.2 %; Eosinophils # 0.1 K/mcL (0.0-0.6); Eosinophils % 0.8 %; Hematocrit 33.7 % (35.3-44.9); Hemoglobin 10.9 g/dL (11.5-15.4); Immature Granulocytes % 0.4 % (0-4); Lymphocytes # 1.7 K/mcL (0.6-4.6); Lymphocytes % 16.6 %; Mean Corpuscular HGB Conc 32.3 g/dL (31.6-35.5); Mean Corpuscular Hemoglobin 27.3 pg (28.0-33.3); Mean Corpuscular Volume 84.3 fL (83.0-100.0); Mean Platelet Volume 10.2 fL (9.4-12.4); Monocytes # 0.7 K/mcL (0.0-1.3); Monocytes % 6.9 %; Neutrophils # 7.6 K/mcL (1.6-8.9); Platelet Count 308 K/mcL (140-400); Red Cell Distribution Width 13.6 % (11.5-14.5); Segmented Neutrophils % 75.1 %; White Blood Count 10.2 K/mcL (4.3-11.1)
[2021-08-07 03:16] LABS: BUN/Creatinine Ratio 7 (6-26); Blood Urea Nitrogen 3 mg/dL (6-20); Calcium 8.4 mg/dL (8.6-10.3); Carbon Dioxide 24 mEq/L (23-29); Chloride 104 mEq/L (98-107); Glucose 95 mg/dL (70-105); Osmolality,Calculated 276 (280-300); Potassium 3.6 mEq/L (3.5-5.1); Sodium 135 mEq/L (136-145); eGFR For African Americans > 60 (> 60); eGFR For Non-African Americans > 60 (> 60)
[2021-08-07 08:05] VITALS: BP 121/80; PULSE 81; TEMP 99.1; O2SAT 98
[2021-08-07] MEDS ORDERED: FLU Vac QV 21-22 (6Month+)/PF 0.5 ML SYRINGE IM ONE (13:19)
[2021-08-07] MEDS ORDERED: Moderna Covid-19 Vaccine 100MCG/0.5mL IM ONE (13:23)
== END 2021-08-07 15:30 | disposition home or self-care (01) ==
LOC: EMEROOARM 20:35 → CDU 20:35 → SUATTDRO 08-06 03:07 → CDU 08-06 09:00 → 3NENU 08-06 09:21
PROVIDERS: ADMIT Internal Medicine; ATTEND Internal Medicine

== ENCOUNTER 2021-08-14 17:45 | Inpatient (IN) ==
[2021-08-14 20:35] LABS: Bacteria,Urine Few per hpf (None-Few); Bilirubin,Urine Negative (Negative); Blood,Urine Negative (Negative); Clarity,Urine Turbid (Clear); Color,Urine Yellow (Yellow); Glucose,Urine (UA) Normal (Normal); Hyaline Casts,Urine Few per lpf (None Seen); Ketones,Urine 10 mg/dL (Negative); Leukocyte Esterase,Urine Small (Negative); Mucus,Urine Moderate per lpf (None-Few); Nitrite,Urine Negative (Negative); Protein,Urine 50 mg/dL (Neg-Trace); RBC,Urine 0-3 per hpf (0-3); Specific Gravity,Urine 1.028 (1.010-1.025); Squamous Epithelial Cell,Urine Moderate per hpf (None-Few); Urobilinogen,Urine Normal (Normal); WBC,Urine 0-3 per hpf (0-3)
[2021-08-14 20:46] LABS: Basophils % 0.2 %; Eosinophils # 0.2 K/mcL (0.0-0.6); Eosinophils % 1.3 %; Hematocrit 38.7 % (35.3-44.9); Immature Granulocytes % 0.4 % (0-4); Lymphocytes # 1.9 K/mcL (0.6-4.6); Lymphocytes % 16.4 %; Mean Corpuscular Hemoglobin 26.4 pg (28.0-33.3); Mean Corpuscular Volume 85.2 fL (83.0-100.0); Mean Platelet Volume 9.9 fL (9.4-12.4); Monocytes # 0.8 K/mcL (0.0-1.3); Monocytes % 6.8 %; Neutrophils # 8.6 K/mcL (1.6-8.9); Platelet Count 345 K/mcL (140-400); Red Blood Count 4.54 M/mcL (3.82-4.97); Red Cell Distribution Width 14.1 % (11.5-14.5); Segmented Neutrophils % 74.9 %; White Blood Count 11.5 K/mcL (4.3-11.1)
[2021-08-14] MEDS ORDERED: Isovue-370 500 ML BOTTLE IVP ONE (20:53)
[2021-08-14 21:07] LABS: Albumin 3.3 g/dL (3.5-5.7); Albumin/Globulin Ratio 0.9 (1.1-2.2); BUN/Creatinine Ratio 8 (6-26); Bilirubin,Direct 0.1 mg/dL (0.0-0.2); Bilirubin,Indirect 0.1 mg/dL (0.0-1.0); Bilirubin,Total 0.2 mg/dL (0.3-1.0); Blood Urea Nitrogen 4 mg/dL (6-20); Calcium 8.9 mg/dL (8.6-10.3); Carbon Dioxide 29 mEq/L (23-29); Chloride 102 mEq/L (98-107); Globulin 3.6 g/dL (2.4-3.5); Glucose 104 mg/dL (70-105); Osmolality,Calculated 281 (280-300); Potassium 3.6 mEq/L (3.5-5.1); Sodium 137 mEq/L (136-145); Total Protein 6.9 g/dL (6.4-8.9); eGFR For African Americans > 60 (> 60); eGFR For Non-African Americans > 60 (> 60)
[2021-08-14] MEDS ORDERED: Piperacillin/Tazobactam 3.375 GM in 0.9 % Sodium Chloride Mini Bag 100 ML IVPB ONE (22:30)
[2021-08-14] MEDS ORDERED: Vancomycin 1,500 MG/265 ML IV.SOLN IVPB ONE (22:48)
[2021-08-14] MEDS ORDERED: Naloxone 0.4 MG/ML INJ IVP PRN (23:39)
[2021-08-14] MEDS ORDERED: Melatonin 3 MG TABLET PO PRN (23:39)
[2021-08-15] MEDS ORDERED: Ketorolac 30 MG/ML VIAL IM PRN (02:13)
[2021-08-15] MEDS: Piperacillin/Tazobactam 3.375 GM in 0.9 % Sodium Chloride Mini Bag 100 ML IVPB SCH ×3 (05:34→21:41)
[2021-08-15 06:16] LABS: Alanine Aminotransferase 3 Units/L (7-52); Albumin 3.2 g/dL (3.5-5.7); Albumin/Globulin Ratio 0.9 (1.1-2.2); Alkaline Phosphatase 71 Units/L (34-104); Aspartate Amino Transferase 9 Units/L (13-39); BUN/Creatinine Ratio 14 (6-26); Bilirubin,Total 0.2 mg/dL (0.3-1.0); Blood Urea Nitrogen 7 mg/dL (6-20); Calcium 8.9 mg/dL (8.6-10.3); Carbon Dioxide 28 mEq/L (23-29); Chloride 102 mEq/L (98-107); Globulin 3.4 g/dL (2.4-3.5); Glucose 103 mg/dL (70-105); Magnesium 1.7 mg/dL (1.6-2.6); Osmolality,Calculated 280 (280-300); Potassium 3.9 mEq/L (3.5-5.1); Sodium 136 mEq/L (136-145); Total Protein 6.6 g/dL (6.4-8.9); eGFR For African Americans > 60 (> 60); eGFR For Non-African Americans > 60 (> 60)
[2021-08-15 06:21] LABS: INR 1.2; Prothrombin Time 13.1 Seconds (9.4-12.1)
[2021-08-15] MEDS ORDERED: Pantoprazole 40 MG VIAL IVP SCH (11:30)
[2021-08-15] MEDS ORDERED: 0.9 % Sodium Chloride 1,000 ML IVC SCH (11:45)
[2021-08-15] MEDS ORDERED: *HR* FentaNYL (PF) 100 MCG/2 ML VIAL ONE ×2 (12:49→14:21)
[2021-08-15] MEDS ORDERED: *HR* Midazolam HCl 2 MG/2 ML VIAL ONE (12:50)
[2021-08-15] MEDS ORDERED: *HR* Propofol 200 MG/20 ML VIAL IVP ONE (12:50)
[2021-08-15] MEDS ORDERED: Lidocaine -MPF 2% 5 ML VIAL ONE (12:53)
[2021-08-15] MEDS ORDERED: *HR* Rocuronium Bromide 50 MG/5 ML VIAL ONE ×2 (12:53→14:50)
[2021-08-15] MEDS ORDERED: *HR* Succinylcholine 200 MG/10 ML VIAL IVP ONE (12:53)
[2021-08-15] MEDS ORDERED: Ondansetron 4 MG/2 ML VIAL ONE (12:53)
[2021-08-15] MEDS ORDERED: Nicotine 21 MG PATCH.TD24 TD SCH (13:15)
[2021-08-15] MEDS ORDERED: Sugammadex Sodium 200 MG/2 ML VIAL IV ONE (14:35)
[2021-08-15] MEDS ORDERED: *HR* HYDROMORPHONE 2 MG/ML VIAL ONE (15:06)
[2021-08-15] MEDS: *HR* HYDROmorphone PF 0.5 MG/0.5 ML SYRINGE IVP PRN ×4 (15:13→15:43)
[2021-08-15] MEDS: *HR* FentaNYL (PF) 100 MCG/2 ML VIAL IVP PRN ×4 (16:05→16:27)
[2021-08-15] MEDS ORDERED: Melatonin 3 MG TABLET PO PRN (16:46)
[2021-08-15] MEDS ORDERED: Naloxone 0.4 MG/ML INJ IVP PRN (16:46)
[2021-08-15] MEDS ORDERED: Vancomycin Oral Soln 125 MG/2.5 ML UDC PO SCH (17:00)
[2021-08-15] MEDS: Vancomycin Oral Soln 125 MG/2.5 ML UDC PO SCH ×2 (17:57→20:02)
[2021-08-15] MEDS: 0.9 % Sodium Chloride 1,000 ML IVC SCH (17:58)
[2021-08-15] MEDS: Lactobacillus 1 EACH CAP.SPRINK PO SCH (20:02)
[2021-08-15] MEDS ORDERED: Lactobacillus 1 EACH CAP.SPRINK PO SCH (21:00)
[2021-08-16] MEDS: 0.9 % Sodium Chloride 1,000 ML IVC SCH ×2 (04:08→15:34)
[2021-08-16] MEDS ORDERED: Piperacillin/Tazobactam 3.375 GM VIAL ONE (04:43)
[2021-08-16 05:24] LABS: Basophils % 0.1 %; Eosinophils % 0.3 %; Hematocrit 36.5 % (35.3-44.9); Hemoglobin 11.6 g/dL (11.5-15.4); Immature Granulocytes % 0.3 % (0-4); Lymphocytes # 1.3 K/mcL (0.6-4.6); Lymphocytes % 8.3 %; Mean Corpuscular HGB Conc 31.8 g/dL (31.6-35.5); Mean Corpuscular Hemoglobin 26.2 pg (28.0-33.3); Mean Corpuscular Volume 82.4 fL (83.0-100.0); Mean Platelet Volume 10.2 fL (9.4-12.4); Monocytes # 0.8 K/mcL (0.0-1.3); Monocytes % 4.9 %; Neutrophils # 13.4 K/mcL (1.6-8.9); Platelet Count 382 K/mcL (140-400); Red Blood Count 4.43 M/mcL (3.82-4.97); Red Cell Distribution Width 14.1 % (11.5-14.5); Segmented Neutrophils % 86.1 %; White Blood Count 15.6 K/mcL (4.3-11.1)
[2021-08-16 05:37] LABS: BUN/Creatinine Ratio 11 (6-26); Blood Urea Nitrogen 4 mg/dL (6-20); Calcium 8.6 mg/dL (8.6-10.3); Carbon Dioxide 24 mEq/L (23-29); Chloride 103 mEq/L (98-107); Glucose 149 mg/dL (70-105); Magnesium 1.7 mg/dL (1.6-2.6); Osmolality,Calculated 278 (280-300); Phosphorous 2.9 mg/dL (2.7-4.5); Sodium 134 mEq/L (136-145); eGFR For African Americans > 60 (> 60); eGFR For Non-African Americans > 60 (> 60)
[2021-08-16] MEDS: Piperacillin/Tazobactam 3.375 GM in 0.9 % Sodium Chloride Mini Bag 100 ML IVPB SCH ×3 (06:10→22:03)
[2021-08-16] MEDS: Vancomycin Oral Soln 125 MG/2.5 ML UDC PO SCH ×4 (09:11→20:03)
[2021-08-16] MEDS: Nicotine 21 MG PATCH.TD24 TD SCH (09:11)
[2021-08-16] MEDS: Pantoprazole 40 MG VIAL IVP SCH (09:11)
[2021-08-16] MEDS: Lactobacillus 1 EACH CAP.SPRINK PO SCH ×2 (09:11→20:03)
[2021-08-16] MEDS: Ibuprofen 400 MG TABLET PO PRN ×2 (10:57→19:19)
[2021-08-17] MEDS: Ibuprofen 400 MG TABLET PO PRN (04:29)
[2021-08-17] MEDS: Piperacillin/Tazobactam 3.375 GM in 0.9 % Sodium Chloride Mini Bag 100 ML IVPB SCH ×3 (05:42→21:40)
[2021-08-17] MEDS: 0.9 % Sodium Chloride 1,000 ML IVC SCH (05:43)
[2021-08-17 06:33] LABS: Alanine Aminotransferase < 3 Units/L (7-52); Albumin 3.1 g/dL (3.5-5.7); Albumin/Globulin Ratio 0.9 (1.1-2.2); Alkaline Phosphatase 58 Units/L (34-104); Aspartate Amino Transferase 9 Units/L (13-39); BUN/Creatinine Ratio 7 (6-26); Bilirubin,Direct 0.1 mg/dL (0.0-0.2); Bilirubin,Indirect 0.3 mg/dL (0.0-1.0); Bilirubin,Total 0.4 mg/dL (0.3-1.0); Blood Urea Nitrogen 3 mg/dL (6-20); Calcium 8.4 mg/dL (8.6-10.3); Carbon Dioxide 23 mEq/L (23-29); Chloride 103 mEq/L (98-107); Globulin 3.3 g/dL (2.4-3.5); Glucose 127 mg/dL (70-105); Magnesium 1.5 mg/dL (1.6-2.6); Osmolality,Calculated 276 (280-300); Potassium 3.6 mEq/L (3.5-5.1); Sodium 134 mEq/L (136-145); Total Protein 6.4 g/dL (6.4-8.9); Vancomycin,Trough 4 mcg/mL (5-10); eGFR For African Americans > 60 (> 60); eGFR For Non-African Americans > 60 (> 60)
[2021-08-17 06:47] LABS: Hepatitis B Surface Antigen Nonreactive (Nonreactive)
[2021-08-17 07:07] LABS: Basophils % 0.2 %; Eosinophils # 0.1 K/mcL (0.0-0.6); Eosinophils % 0.5 %; Hematocrit 32.4 % (35.3-44.9); Hemoglobin 10.3 g/dL (11.5-15.4); Immature Granulocytes % 0.4 % (0-4); Lymphocytes # 1.3 K/mcL (0.6-4.6); Lymphocytes % 10.2 %; Mean Corpuscular HGB Conc 31.8 g/dL (31.6-35.5); Mean Corpuscular Hemoglobin 26.3 pg (28.0-33.3); Mean Corpuscular Volume 82.7 fL (83.0-100.0); Mean Platelet Volume 9.8 fL (9.4-12.4); Monocytes # 0.9 K/mcL (0.0-1.3); Neutrophils # 10.5 K/mcL (1.6-8.9); Platelet Count 341 K/mcL (140-400); Red Blood Count 3.92 M/mcL (3.82-4.97); Red Cell Distribution Width 14.5 % (11.5-14.5); Segmented Neutrophils % 81.7 %; White Blood Count 12.8 K/mcL (4.3-11.1)
[2021-08-17 07:16] LABS: Hepatitis B Core IgM Nonreactive (Nonreactive)
[2021-08-17 07:17] LABS: Hepatitis A Antibody IgM Nonreactive (Nonreactive)
[2021-08-17] MEDS ORDERED: Vancomycin 1,250 MG/262.5 ML IV.SOLN IVPB ONE (09:00)
[2021-08-17 09:39] LABS: Hepatitis C Virus Antibody Reactive (Nonreactive)
[2021-08-17] MEDS: Vancomycin Oral Soln 125 MG/2.5 ML UDC PO SCH ×4 (09:50→20:06)
[2021-08-17] MEDS: Lactobacillus 1 EACH CAP.SPRINK PO SCH ×2 (09:51→20:06)
[2021-08-17] MEDS: Nicotine 21 MG PATCH.TD24 TD SCH (09:55)
[2021-08-17] MEDS: Pantoprazole 40 MG VIAL IVP SCH (10:00)
[2021-08-17] MEDS ORDERED: Ibuprofen 600 MG TABLET PO ONE (21:16)
[2021-08-18 03:45] LABS: Basophils % 0.3 %; Eosinophils # 0.1 K/mcL (0.0-0.6); Eosinophils % 1.5 %; Hematocrit 32.1 % (35.3-44.9); Hemoglobin 10.2 g/dL (11.5-15.4); Immature Granulocytes % 0.7 % (0-4); Lymphocytes # 1.5 K/mcL (0.6-4.6); Lymphocytes % 16.8 %; Mean Corpuscular HGB Conc 31.8 g/dL (31.6-35.5); Mean Corpuscular Volume 84.9 fL (83.0-100.0); Mean Platelet Volume 10.1 fL (9.4-12.4); Monocytes # 0.7 K/mcL (0.0-1.3); Monocytes % 8.5 %; Neutrophils # 6.3 K/mcL (1.6-8.9); Platelet Count 370 K/mcL (140-400); Red Blood Count 3.78 M/mcL (3.82-4.97); Red Cell Distribution Width 14.6 % (11.5-14.5); Segmented Neutrophils % 72.2 %; White Blood Count 8.7 K/mcL (4.3-11.1)
[2021-08-18 04:04] LABS: BUN/Creatinine Ratio 8 (6-26); Blood Urea Nitrogen 5 mg/dL (6-20); Calcium 8.4 mg/dL (8.6-10.3); Carbon Dioxide 24 mEq/L (23-29); Chloride 107 mEq/L (98-107); Glucose 127 mg/dL (70-105); Osmolality,Calculated 287 (280-300); Potassium 3.1 mEq/L (3.5-5.1); Sodium 139 mEq/L (136-145); eGFR For African Americans > 60 (> 60); eGFR For Non-African Americans > 60 (> 60)
[2021-08-18] MEDS: Piperacillin/Tazobactam 3.375 GM in 0.9 % Sodium Chloride Mini Bag 100 ML IVPB SCH ×2 (06:07→14:12)
[2021-08-18] MEDS: Lactobacillus 1 EACH CAP.SPRINK PO SCH ×2 (08:52→22:03)
[2021-08-18] MEDS: Vancomycin Oral Soln 125 MG/2.5 ML UDC PO SCH ×4 (08:54→22:03)
[2021-08-18] MEDS: Pantoprazole 40 MG VIAL IVP SCH (08:54)
[2021-08-18] MEDS: Nicotine 21 MG PATCH.TD24 TD SCH (09:02)
[2021-08-18] MEDS ORDERED: Perflutren Lipid Microsphere 1.3 ML in 0.9 % Sodium Chloride 8.7 ML IVP PRN (13:45)
[2021-08-18] MEDS: CeFAZolin 2,000 MG/120 ML BAG IVPB SCH (22:03)
[2021-08-19] MEDS: CeFAZolin 2,000 MG/120 ML BAG IVPB SCH ×3 (05:25→23:15)
[2021-08-19 07:43] LABS: Basophils % 0.2 %; Eosinophils # 0.2 K/mcL (0.0-0.6); Eosinophils % 2.3 %; Hematocrit 32.6 % (35.3-44.9); Immature Granulocytes % 0.2 % (0-4); Lymphocytes # 1.2 K/mcL (0.6-4.6); Lymphocytes % 14.5 %; Mean Corpuscular HGB Conc 30.7 g/dL (31.6-35.5); Mean Corpuscular Hemoglobin 26.5 pg (28.0-33.3); Mean Corpuscular Volume 86.5 fL (83.0-100.0); Mean Platelet Volume 10.7 fL (9.4-12.4); Monocytes # 0.7 K/mcL (0.0-1.3); Monocytes % 8.1 %; Neutrophils # 6.1 K/mcL (1.6-8.9); Platelet Count 341 K/mcL (140-400); Red Blood Count 3.77 M/mcL (3.82-4.97); Red Cell Distribution Width 14.4 % (11.5-14.5); Segmented Neutrophils % 74.7 %; White Blood Count 8.2 K/mcL (4.3-11.1)
[2021-08-19] MEDS: Lactobacillus 1 EACH CAP.SPRINK PO SCH ×2 (07:56→20:21)
[2021-08-19] MEDS: Vancomycin Oral Soln 125 MG/2.5 ML UDC PO SCH ×4 (07:58→20:22)
[2021-08-19] MEDS: Nicotine 21 MG PATCH.TD24 TD SCH (07:59)
[2021-08-19 08:13] LABS: Alanine Aminotransferase 4 Units/L (7-52); Albumin/Globulin Ratio 0.9 (1.1-2.2); Alkaline Phosphatase 59 Units/L (34-104); Aspartate Amino Transferase 18 Units/L (13-39); BUN/Creatinine Ratio 7 (6-26); Bilirubin,Indirect 0.2 mg/dL (0.0-1.0); Bilirubin,Total 0.2 mg/dL (0.3-1.0); Blood Urea Nitrogen 8 mg/dL (6-20); Calcium 8.6 mg/dL (8.6-10.3); Carbon Dioxide 22 mEq/L (23-29); Chloride 107 mEq/L (98-107); Globulin 3.5 g/dL (2.4-3.5); Glucose 88 mg/dL (70-105); Magnesium 1.8 mg/dL (1.6-2.6); Osmolality,Calculated 282 (280-300); Potassium 3.8 mEq/L (3.5-5.1); Sodium 137 mEq/L (136-145); Total Protein 6.5 g/dL (6.4-8.9); eGFR For African Americans > 60 (> 60); eGFR For Non-African Americans 53 (> 60)
[2021-08-19 08:45] LABS: C-Reactive Protein 106 mg/L (Less than 10)
[2021-08-19] MEDS ORDERED: Lidocaine Viscous Oral Soln 15 ML SOLUTION MM PRN (12:06)
[2021-08-19] MEDS ORDERED: 0.9 % Sodium Chloride 500 ML IVC ONE (12:07)
[2021-08-19] MEDS: *HR* Midazolam HCl 5 MG/5 ML VIAL IVP PRN ×3 (12:40→12:50)
[2021-08-19] MEDS: *HR* FentaNYL (PF) 100 MCG/2 ML VIAL IVP PRN ×3 (12:40→12:50)
[2021-08-19] MEDS: polyethylene glycoL 3350 17 GM POWD.PACK PO SCH (20:20)
[2021-08-19] MEDS: Sennosides/Docusate Sodium TABLET PO SCH (20:21)
[2021-08-19] MEDS: Ondansetron ODT 4 MG TAB.RAPDIS SL PRN (20:23)
[2021-08-20 02:56] LABS: Basophils % 0.1 %; Eosinophils # 0.1 K/mcL (0.0-0.6); Eosinophils % 1.4 %; Hematocrit 31.1 % (35.3-44.9); Hemoglobin 10.1 g/dL (11.5-15.4); Immature Granulocytes % 0.3 % (0-4); Lymphocytes # 1.1 K/mcL (0.6-4.6); Lymphocytes % 12.1 %; Mean Corpuscular HGB Conc 32.5 g/dL (31.6-35.5); Mean Corpuscular Hemoglobin 27.1 pg (28.0-33.3); Mean Corpuscular Volume 83.4 fL (83.0-100.0); Mean Platelet Volume 10.1 fL (9.4-12.4); Monocytes # 0.9 K/mcL (0.0-1.3); Monocytes % 9.9 %; Neutrophils # 6.9 K/mcL (1.6-8.9); Platelet Count 371 K/mcL (140-400); Red Blood Count 3.73 M/mcL (3.82-4.97); Segmented Neutrophils % 76.2 %
[2021-08-20 03:05] LABS: Blood Urea Nitrogen 6 mg/dL (6-20); Calcium 8.8 mg/dL (8.6-10.3); Carbon Dioxide 22 mEq/L (23-29); Chloride 105 mEq/L (98-107); Glucose 109 mg/dL (70-105); Magnesium 1.8 mg/dL (1.6-2.6); Osmolality,Calculated 282 (280-300); Potassium 3.4 mEq/L (3.5-5.1); Sodium 137 mEq/L (136-145)
[2021-08-20 04:11] LABS: BUN/Creatinine Ratio 7 (6-26); eGFR For African Americans > 60 (> 60); eGFR For Non-African Americans > 60 (> 60)
[2021-08-20] MEDS: CeFAZolin 2,000 MG/120 ML BAG IVPB SCH ×2 (06:41→13:09)
[2021-08-20] MEDS: 0.9 % Sodium Chloride 1,000 ML IVC SCH (07:14)
[2021-08-20] MEDS: Ondansetron ODT 4 MG TAB.RAPDIS SL PRN ×2 (08:01→17:55)
[2021-08-20] MEDS: Lactobacillus 1 EACH CAP.SPRINK PO SCH ×2 (08:02→20:51)
[2021-08-20] MEDS: polyethylene glycoL 3350 17 GM POWD.PACK PO SCH (08:02)
[2021-08-20] MEDS: Vancomycin Oral Soln 125 MG/2.5 ML UDC PO SCH ×4 (08:02→20:51)
[2021-08-20] MEDS: Nicotine 21 MG PATCH.TD24 TD SCH (08:02)
[2021-08-20] MEDS: Sennosides/Docusate Sodium TABLET PO SCH ×2 (08:02→20:52)
[2021-08-21] MEDS: CeFAZolin 2,000 MG/120 ML BAG IVPB SCH ×4 (04:30→21:23)
[2021-08-21] MEDS: Ondansetron ODT 4 MG TAB.RAPDIS SL PRN ×3 (04:38→21:26)
[2021-08-21] MEDS: Sennosides/Docusate Sodium TABLET PO SCH ×2 (09:07→21:24)
[2021-08-21] MEDS: Lactobacillus 1 EACH CAP.SPRINK PO SCH ×2 (09:08→21:24)
[2021-08-21] MEDS: polyethylene glycoL 3350 17 GM POWD.PACK PO SCH (13:25)
[2021-08-21] MEDS: Nicotine 21 MG PATCH.TD24 TD SCH (13:25)
[2021-08-21] MEDS: Vancomycin Oral Soln 125 MG/2.5 ML UDC PO SCH ×4 (14:13→21:24)
[2021-08-22] MEDS: CeFAZolin 2,000 MG/120 ML BAG IVPB SCH ×3 (05:21→20:58)
[2021-08-22] MEDS: Vancomycin Oral Soln 125 MG/2.5 ML UDC PO SCH ×4 (10:16→20:59)
[2021-08-22] MEDS: Lactobacillus 1 EACH CAP.SPRINK PO SCH ×2 (10:16→20:59)
[2021-08-22] MEDS: Nicotine 21 MG PATCH.TD24 TD SCH (10:18)
[2021-08-22] MEDS: polyethylene glycoL 3350 17 GM POWD.PACK PO SCH (10:18)
[2021-08-22] MEDS: Sennosides/Docusate Sodium TABLET PO SCH (10:20)
[2021-08-23] MEDS: CeFAZolin 2,000 MG/120 ML BAG IVPB SCH ×3 (04:39→20:33)
[2021-08-23] MEDS: Vancomycin Oral Soln 125 MG/2.5 ML UDC PO SCH ×4 (09:05→20:09)
[2021-08-23] MEDS: Lactobacillus 1 EACH CAP.SPRINK PO SCH ×2 (09:05→20:09)
[2021-08-23] MEDS: Nicotine 21 MG PATCH.TD24 TD SCH (09:06)
[2021-08-24] MEDS: CeFAZolin 2,000 MG/120 ML BAG IVPB SCH ×3 (04:25→20:50)
[2021-08-24] MEDS: Lactobacillus 1 EACH CAP.SPRINK PO SCH ×2 (09:38→20:50)
[2021-08-24] MEDS: Vancomycin Oral Soln 125 MG/2.5 ML UDC PO SCH ×4 (09:38→20:50)
[2021-08-24] MEDS: Nicotine 21 MG PATCH.TD24 TD SCH (09:40)
[2021-08-25 02:34] LABS: Basophils % 0.4 %; Eosinophils # 0.2 K/mcL (0.0-0.6); Eosinophils % 1.9 %; Hematocrit 30.6 % (35.3-44.9); Hemoglobin 9.9 g/dL (11.5-15.4); Immature Granulocytes % 0.3 % (0-4); Lymphocytes # 1.6 K/mcL (0.6-4.6); Lymphocytes % 21.1 %; Mean Corpuscular HGB Conc 32.4 g/dL (31.6-35.5); Mean Corpuscular Hemoglobin 26.9 pg (28.0-33.3); Mean Corpuscular Volume 83.2 fL (83.0-100.0); Monocytes # 0.8 K/mcL (0.0-1.3); Monocytes % 10.6 %; Neutrophils # 5.1 K/mcL (1.6-8.9); Platelet Count 389 K/mcL (140-400); Red Blood Count 3.68 M/mcL (3.82-4.97); Segmented Neutrophils % 65.7 %; White Blood Count 7.7 K/mcL (4.3-11.1)
[2021-08-25 03:00] LABS: Alanine Aminotransferase < 3 Units/L (7-52); Albumin 3.4 g/dL (3.5-5.7); Albumin/Globulin Ratio 0.9 (1.1-2.2); Alkaline Phosphatase 53 Units/L (34-104); Aspartate Amino Transferase 9 Units/L (13-39); BUN/Creatinine Ratio 13 (6-26); Bilirubin,Total 0.2 mg/dL (0.3-1.0); Blood Urea Nitrogen 9 mg/dL (6-20); Calcium 8.9 mg/dL (8.6-10.3); Carbon Dioxide 25 mEq/L (23-29); Chloride 101 mEq/L (98-107); Globulin 3.6 g/dL (2.4-3.5); Glucose 157 mg/dL (70-105); Osmolality,Calculated 292 (280-300); Sodium 140 mEq/L (136-145); eGFR For African Americans > 60 (> 60); eGFR For Non-African Americans > 60 (> 60)
[2021-08-25] MEDS: CeFAZolin 2,000 MG/120 ML BAG IVPB SCH ×2 (04:43→12:30)
[2021-08-25] MEDS: Vancomycin Oral Soln 125 MG/2.5 ML UDC PO SCH ×2 (07:36→12:30)
[2021-08-25] MEDS: Lactobacillus 1 EACH CAP.SPRINK PO SCH (07:36)
[2021-08-25] MEDS: Nicotine 21 MG PATCH.TD24 TD SCH (09:01)
[2021-08-25 12:30] VITALS: BP 116/80; PULSE 72; TEMP 98.3; O2SAT 99
== END 2021-08-25 15:22 | DRG 711 ==
LOC: 3ANU 17:45 → EMEROOARM 17:45 → OBSVTOIN 23:38 → SUATTDRO 23:38 → 3ANU 08-15 00:36
PROVIDERS: ADMIT Internal Medicine; ATTEND Hospitalist

== ENCOUNTER 2022-02-26 08:37 | Inpatient (IN) ==
[2022-02-26] MEDS ORDERED: Ondansetron 4 MG/2 ML VIAL IVP ONE (08:46)
[2022-02-26] MEDS ORDERED: 0.9 % Sodium Chloride 1,000 ML IVC ONE (08:46)
[2022-02-26] MEDS ORDERED: Iopamidol - 370 500 ML MLS IVP ONE (08:57)
[2022-02-26] MEDS ORDERED: Ondansetron ODT 4 MG TAB.RAPDIS SL ONE (09:20)
[2022-02-26 09:41] LABS: Basophils % 0.2 %; Hematocrit 40.5 % (35.3-44.9); Hemoglobin 12.9 g/dL (11.5-15.4); Immature Granulocytes % 0.9 % (0-4); Lymphocytes # 1.6 K/mcL (0.6-4.6); Lymphocytes % 7.2 %; Mean Corpuscular HGB Conc 31.9 g/dL (31.6-35.5); Mean Corpuscular Hemoglobin 24.1 pg (28.0-33.3); Mean Corpuscular Volume 75.6 fL (83.0-100.0); Mean Platelet Volume 9.9 fL (9.4-12.4); Monocytes # 1.3 K/mcL (0.0-1.3); Monocytes % 5.8 %; Neutrophils # 18.9 K/mcL (1.6-8.9); Platelet Count 549 K/mcL (140-400); Red Blood Count 5.36 M/mcL (3.82-4.97); Red Cell Distribution Width 16.9 % (11.5-14.5); Segmented Neutrophils % 85.9 %
[2022-02-26 09:42] LABS: Bilirubin,Urine Small (Negative); Blood,Urine Negative (Negative); Clarity,Urine Turbid (Clear); Color,Urine Orange (Yellow); Glucose,Urine (UA) 30 mg/dL (Normal); Ketones,Urine 40 mg/dL (Negative); Leukocyte Esterase,Urine Moderate (Negative); Mucus,Urine Many per lpf (None-Few); Nitrite,Urine Negative (Negative); Protein,Urine >=300 mg/dL (Neg-Trace); Specific Gravity,Urine > 1.030 (1.010-1.025); Squamous Epithelial Cell,Urine Many per hpf (None-Few); Urobilinogen,Urine >=8.0 mg/dL (Normal)
[2022-02-26 10:03] LABS: Alanine Aminotransferase 4 Units/L (7-52); Albumin 3.7 g/dL (3.5-5.7); Albumin/Globulin Ratio 0.8 (1.1-2.2); Alkaline Phosphatase 168 Units/L (34-104); Amylase 25 Units/L (29-103); Aspartate Amino Transferase 12 Units/L (13-39); BUN/Creatinine Ratio 13 (6-26); Bilirubin,Direct 0.2 mg/dL (0.0-0.2); Bilirubin,Indirect 0.6 mg/dL (0.0-1.0); Bilirubin,Total 0.8 mg/dL (0.3-1.0); Blood Urea Nitrogen 8 mg/dL (6-20); Calcium 9.8 mg/dL (8.6-10.3); Carbon Dioxide 25 mEq/L (23-29); Chloride 94 mEq/L (98-107); Globulin 4.6 g/dL (2.4-3.5); Glucose 213 mg/dL (70-105); Lipase 18 Units/L (11-82); Osmolality,Calculated 283 (280-300); Potassium 2.9 mEq/L (3.5-5.1); Sodium 134 mEq/L (136-145); Total Protein 8.3 g/dL (6.4-8.9); eGFR For African Americans > 60 (> 60); eGFR For Non-African Americans > 60 (> 60)
[2022-02-26] MEDS ORDERED: Piperacillin/Tazobactam 3.375 GM in 0.9 % Sodium Chloride Mini Bag 100 ML IVPB ONE (11:28)
[2022-02-26 12:09] LABS: INR 1.5; Prothrombin Time 16.6 Seconds (9.4-12.1)
[2022-02-26 12:11] LABS: Activated Partial Thrombo Time 31.8 Seconds (26.0-36.0)
[2022-02-26] MEDS ORDERED: Ondansetron ODT 4 MG TAB.RAPDIS SL PRN (12:19)
[2022-02-26] MEDS ORDERED: Naloxone 0.4 MG/ML INJ IVP PRN (12:19)
[2022-02-26] MEDS ORDERED: *HR* Promethazine 25 MG/ML VIAL IM ONE (13:04)
[2022-02-26] MEDS ORDERED: *HR* FentaNYL (PF) 100 MCG/2 ML VIAL IVP ONE (13:13)
[2022-02-26] MEDS: Ondansetron 4 MG/2 ML VIAL IVP PRN (16:22)
[2022-02-26] MEDS: 0.9 % Sodium Chloride 1,000 ML IVC SCH (16:29)
[2022-02-26 16:41] LABS: BUN/Creatinine Ratio 12 (6-26); Blood Urea Nitrogen 6 mg/dL (6-20); Carbon Dioxide 27 mEq/L (23-29); Chloride 101 mEq/L (98-107); Glucose 137 mg/dL (70-105); Osmolality,Calculated 282 (280-300); Potassium 3.8 mEq/L (3.5-5.1); Sodium 136 mEq/L (136-145); eGFR For African Americans > 60 (> 60); eGFR For Non-African Americans > 60 (> 60)
[2022-02-26] MEDS: Piperacillin/Tazobactam 3.375 GM in 0.9 % Sodium Chloride Mini Bag 100 ML IVPB SCH (21:57)
[2022-02-26] MEDS: *HR* HYDROcodone/Acet 5/325 mg TABLET PO PRN (21:58)
[2022-02-27] MEDS: Piperacillin/Tazobactam 3.375 GM in 0.9 % Sodium Chloride Mini Bag 100 ML IVPB SCH ×2 (05:39→17:19)
[2022-02-27] MEDS: 0.9 % Sodium Chloride 1,000 ML IVC SCH ×2 (05:39→17:20)
[2022-02-27] MEDS: *HR* Enoxaparin 40 MG/0.4 ML SYRINGE SQ SCH (05:40)
[2022-02-27 05:43] LABS: Basophils % 0.2 %; Eosinophils % 0.1 %; Hematocrit 38.6 % (35.3-44.9); Hemoglobin 11.9 g/dL (11.5-15.4); Immature Granulocytes % 0.4 % (0-4); Lymphocytes # 1.3 K/mcL (0.6-4.6); Lymphocytes % 14.7 %; Mean Corpuscular HGB Conc 30.8 g/dL (31.6-35.5); Mean Platelet Volume 10.1 fL (9.4-12.4); Monocytes # 0.6 K/mcL (0.0-1.3); Monocytes % 6.7 %; Platelet Count 391 K/mcL (140-400); Red Blood Count 4.95 M/mcL (3.82-4.97); Segmented Neutrophils % 77.9 %
[2022-02-27] MEDS: Ondansetron 4 MG/2 ML VIAL IVP PRN ×2 (05:48→17:18)
[2022-02-27 06:11] LABS: Alanine Aminotransferase < 3 Units/L (7-52); Albumin 3.3 g/dL (3.5-5.7); Albumin/Globulin Ratio 0.9 (1.1-2.2); Alkaline Phosphatase 132 Units/L (34-104); Aspartate Amino Transferase 14 Units/L (13-39); BUN/Creatinine Ratio 11 (6-26); Bilirubin,Total 0.5 mg/dL (0.3-1.0); Blood Urea Nitrogen 6 mg/dL (6-20); Carbon Dioxide 26 mEq/L (23-29); Chloride 102 mEq/L (98-107); Globulin 3.8 g/dL (2.4-3.5); Glucose 104 mg/dL (70-105); Osmolality,Calculated 280 (280-300); Potassium 3.4 mEq/L (3.5-5.1); Sodium 136 mEq/L (136-145); Total Protein 7.1 g/dL (6.4-8.9); eGFR For African Americans > 60 (> 60); eGFR For Non-African Americans > 60 (> 60)
[2022-02-27] MEDS ORDERED: Prochlorperazine 10 MG/2 ML VIAL IVP PRN (08:26)
[2022-02-27] MEDS: BuPROPion XL (24 HR) 150 MG TABLET PO SCH (08:41)
[2022-02-27] MEDS: CeFAZolin 2,000 MG/120 ML BAG IVPB SCH (23:08)
[2022-02-28 03:22] LABS: Basophils % 0.3 %; Hemoglobin 10.7 g/dL (11.5-15.4); Immature Granulocytes % 0.4 % (0-4); Lymphocytes # 1.9 K/mcL (0.6-4.6); Lymphocytes % 21.5 %; Mean Corpuscular HGB Conc 31.5 g/dL (31.6-35.5); Mean Corpuscular Hemoglobin 24.2 pg (28.0-33.3); Mean Corpuscular Volume 76.9 fL (83.0-100.0); Mean Platelet Volume 9.7 fL (9.4-12.4); Monocytes # 0.6 K/mcL (0.0-1.3); Neutrophils # 6.4 K/mcL (1.6-8.9); Platelet Count 362 K/mcL (140-400); Red Blood Count 4.42 M/mcL (3.82-4.97); Red Cell Distribution Width 16.7 % (11.5-14.5); Segmented Neutrophils % 70.8 %
[2022-02-28] MEDS: *HR* Enoxaparin 40 MG/0.4 ML SYRINGE SQ SCH (05:29)
[2022-02-28] MEDS: Ondansetron 4 MG/2 ML VIAL IVP PRN (06:33)
[2022-02-28] MEDS: 0.9 % Sodium Chloride 1,000 ML IVC SCH ×2 (06:33→21:44)
[2022-02-28] MEDS: BuPROPion XL (24 HR) 150 MG TABLET PO SCH (09:48)
[2022-02-28] MEDS: *HR* HYDROcodone/Acet 5/325 mg TABLET PO PRN ×2 (10:02→20:08)
[2022-02-28] MEDS: CeFAZolin 2,000 MG/120 ML BAG IVPB SCH ×2 (10:02→14:53)
[2022-02-28] MEDS ORDERED: Perflutren Lipid Microsphere 1.3 ML in 0.9 % Sodium Chloride 8.7 ML IVP PRN (11:27)
[2022-02-28] MEDS: Ibuprofen 400 MG TABLET PO PRN (14:51)
[2022-03-01] MEDS: CeFAZolin 2,000 MG/120 ML BAG IVPB SCH ×4 (00:54→23:45)
[2022-03-01 01:55] LABS: Basophils # 0.1 K/mcL (0.0-0.2); Basophils % 0.6 %; Eosinophils % 0.4 %; Hematocrit 36.9 % (35.3-44.9); Hemoglobin 11.5 g/dL (11.5-15.4); Immature Granulocytes % 0.4 % (0-4); Lymphocytes # 2.3 K/mcL (0.6-4.6); Lymphocytes % 25.3 %; Mean Corpuscular HGB Conc 31.2 g/dL (31.6-35.5); Mean Corpuscular Hemoglobin 23.9 pg (28.0-33.3); Mean Corpuscular Volume 76.6 fL (83.0-100.0); Mean Platelet Volume 9.6 fL (9.4-12.4); Monocytes # 0.7 K/mcL (0.0-1.3); Monocytes % 7.6 %; Neutrophils # 5.9 K/mcL (1.6-8.9); Platelet Count 408 K/mcL (140-400); Red Blood Count 4.82 M/mcL (3.82-4.97); Red Cell Distribution Width 16.5 % (11.5-14.5); Segmented Neutrophils % 65.7 %; White Blood Count 8.9 K/mcL (4.3-11.1)
[2022-03-01 02:14] LABS: Alanine Aminotransferase 3 Units/L (7-52); Albumin 3.3 g/dL (3.5-5.7); Albumin/Globulin Ratio 0.9 (1.1-2.2); Alkaline Phosphatase 110 Units/L (34-104); Aspartate Amino Transferase 12 Units/L (13-39); BUN/Creatinine Ratio 5 (6-26); Bilirubin,Total 0.4 mg/dL (0.3-1.0); Blood Urea Nitrogen 3 mg/dL (6-20); Calcium 8.9 mg/dL (8.6-10.3); Carbon Dioxide 25 mEq/L (23-29); Chloride 105 mEq/L (98-107); Globulin 3.8 g/dL (2.4-3.5); Glucose 91 mg/dL (70-105); Osmolality,Calculated 284 (280-300); Potassium 3.3 mEq/L (3.5-5.1); Sodium 139 mEq/L (136-145); Total Protein 7.1 g/dL (6.4-8.9); eGFR For African Americans > 60 (> 60); eGFR For Non-African Americans > 60 (> 60)
[2022-03-01] MEDS: Ondansetron 4 MG/2 ML VIAL IVP PRN ×2 (04:57→12:27)
[2022-03-01] MEDS: *HR* Enoxaparin 40 MG/0.4 ML SYRINGE SQ SCH (04:58)
[2022-03-01] MEDS: BuPROPion XL (24 HR) 150 MG TABLET PO SCH (08:30)
[2022-03-01] MEDS: *HR* HYDROcodone/Acet 5/325 mg TABLET PO PRN (08:36)
[2022-03-01] MEDS: 0.9 % Sodium Chloride 1,000 ML IVC SCH (10:22)
[2022-03-02 01:18] LABS: Basophils % 0.4 %; Eosinophils # 0.1 K/mcL (0.0-0.6); Eosinophils % 1.5 %; Hematocrit 34.8 % (35.3-44.9); Hemoglobin 10.9 g/dL (11.5-15.4); Immature Granulocytes % 0.4 % (0-4); Mean Corpuscular HGB Conc 31.3 g/dL (31.6-35.5); Mean Corpuscular Hemoglobin 24.4 pg (28.0-33.3); Mean Corpuscular Volume 77.9 fL (83.0-100.0); Mean Platelet Volume 9.8 fL (9.4-12.4); Monocytes # 0.7 K/mcL (0.0-1.3); Monocytes % 8.6 %; Neutrophils # 4.9 K/mcL (1.6-8.9); Platelet Count 355 K/mcL (140-400); Red Blood Count 4.47 M/mcL (3.82-4.97); Red Cell Distribution Width 16.6 % (11.5-14.5); Segmented Neutrophils % 63.1 %; White Blood Count 7.8 K/mcL (4.3-11.1)
[2022-03-02 01:36] LABS: BUN/Creatinine Ratio 7 (6-26); Blood Urea Nitrogen 4 mg/dL (6-20); Calcium 8.7 mg/dL (8.6-10.3); Carbon Dioxide 26 mEq/L (23-29); Chloride 103 mEq/L (98-107); Glucose 96 mg/dL (70-105); Osmolality,Calculated 281 (280-300); Potassium 3.2 mEq/L (3.5-5.1); Sodium 137 mEq/L (136-145); eGFR For African Americans > 60 (> 60); eGFR For Non-African Americans > 60 (> 60)
[2022-03-02] MEDS: *HR* Enoxaparin 40 MG/0.4 ML SYRINGE SQ SCH (05:53)
[2022-03-02] MEDS: 0.9 % Sodium Chloride 1,000 ML IVC SCH ×2 (05:53→10:39)
[2022-03-02] MEDS: CeFAZolin 2,000 MG/120 ML BAG IVPB SCH ×2 (07:49→15:20)
[2022-03-02] MEDS: BuPROPion XL (24 HR) 150 MG TABLET PO SCH (07:49)
[2022-03-02] MEDS: *HR* HYDROcodone/Acet 5/325 mg TABLET PO PRN ×2 (07:58→21:09)
[2022-03-02] MEDS: Magnesium Oxide 400 MG TABLET PO SCH (12:11)
[2022-03-03] MEDS: CeFAZolin 2,000 MG/120 ML BAG IVPB SCH ×4 (00:19→23:47)
[2022-03-03 01:23] LABS: Basophils % 0.3 %; Eosinophils # 0.1 K/mcL (0.0-0.6); Eosinophils % 1.2 %; Hematocrit 37.3 % (35.3-44.9); Hemoglobin 11.7 g/dL (11.5-15.4); Immature Granulocytes % 0.2 % (0-4); Lymphocytes # 2.3 K/mcL (0.6-4.6); Lymphocytes % 24.5 %; Mean Corpuscular HGB Conc 31.4 g/dL (31.6-35.5); Mean Corpuscular Hemoglobin 24.3 pg (28.0-33.3); Mean Corpuscular Volume 77.4 fL (83.0-100.0); Mean Platelet Volume 9.7 fL (9.4-12.4); Monocytes # 0.7 K/mcL (0.0-1.3); Monocytes % 7.9 %; Neutrophils # 6.1 K/mcL (1.6-8.9); Platelet Count 385 K/mcL (140-400); Red Blood Count 4.82 M/mcL (3.82-4.97); Red Cell Distribution Width 17.2 % (11.5-14.5); Segmented Neutrophils % 65.9 %; White Blood Count 9.3 K/mcL (4.3-11.1)
[2022-03-03 02:05] LABS: Alanine Aminotransferase < 3 Units/L (7-52); Albumin 3.3 g/dL (3.5-5.7); Albumin/Globulin Ratio 0.9 (1.1-2.2); Alkaline Phosphatase 95 Units/L (34-104); Aspartate Amino Transferase 10 Units/L (13-39); BUN/Creatinine Ratio 7 (6-26); Bilirubin,Total 0.3 mg/dL (0.3-1.0); Blood Urea Nitrogen 4 mg/dL (6-20); Carbon Dioxide 26 mEq/L (23-29); Chloride 105 mEq/L (98-107); Globulin 3.5 g/dL (2.4-3.5); Glucose 107 mg/dL (70-105); Magnesium 1.9 mg/dL (1.6-2.6); Osmolality,Calculated 285 (280-300); Potassium 3.5 mEq/L (3.5-5.1); Sodium 139 mEq/L (136-145); Total Protein 6.8 g/dL (6.4-8.9); eGFR For African Americans > 60 (> 60); eGFR For Non-African Americans > 60 (> 60)
[2022-03-03] MEDS: *HR* HYDROcodone/Acet 5/325 mg TABLET PO PRN ×2 (03:06→09:46)
[2022-03-03] MEDS: *HR* Enoxaparin 40 MG/0.4 ML SYRINGE SQ SCH (05:08)
[2022-03-03] MEDS: BuPROPion XL (24 HR) 150 MG TABLET PO SCH (08:19)
[2022-03-03] MEDS: Magnesium Oxide 400 MG TABLET PO SCH ×2 (08:19→09:46)
[2022-03-03] MEDS ORDERED: Lidocaine Viscous Oral Soln 15 ML SOLUTION MM PRN (10:54)
[2022-03-03] MEDS ORDERED: 0.9 % Sodium Chloride 500 ML IVC ONE (10:55)
[2022-03-03] MEDS: *HR* Midazolam HCl 5 MG/5 ML VIAL IVP PRN ×7 (11:20→11:40)
[2022-03-03] MEDS: *HR* FentaNYL (PF) 100 MCG/2 ML VIAL IVP PRN ×7 (11:20→11:45)
[2022-03-04 04:49] LABS: Basophils % 0.2 %; Eosinophils # 0.1 K/mcL (0.0-0.6); Eosinophils % 0.5 %; Hematocrit 37.6 % (35.3-44.9); Hemoglobin 11.5 g/dL (11.5-15.4); Immature Granulocytes % 0.6 % (0-4); Lymphocytes # 2.2 K/mcL (0.6-4.6); Lymphocytes % 13.9 %; Mean Corpuscular HGB Conc 30.6 g/dL (31.6-35.5); Mean Corpuscular Hemoglobin 24.4 pg (28.0-33.3); Mean Corpuscular Volume 79.7 fL (83.0-100.0); Mean Platelet Volume 9.8 fL (9.4-12.4); Monocytes % 6.3 %; Neutrophils # 12.2 K/mcL (1.6-8.9); Platelet Count 387 K/mcL (140-400); Red Blood Count 4.72 M/mcL (3.82-4.97); Red Cell Distribution Width 17.5 % (11.5-14.5); Segmented Neutrophils % 78.5 %
[2022-03-04 04:52] LABS: White Blood Count 15.5 K/mcL (4.3-11.1)
[2022-03-04 05:16] LABS: Alanine Aminotransferase 3 Units/L (7-52); Albumin 3.7 g/dL (3.5-5.7); Albumin/Globulin Ratio 1.1 (1.1-2.2); Alkaline Phosphatase 103 Units/L (34-104); Aspartate Amino Transferase 15 Units/L (13-39); BUN/Creatinine Ratio 6 (6-26); Bilirubin,Total 0.5 mg/dL (0.3-1.0); Blood Urea Nitrogen 6 mg/dL (6-20); Calcium 9.1 mg/dL (8.6-10.3); Carbon Dioxide 25 mEq/L (23-29); Chloride 104 mEq/L (98-107); Globulin 3.3 g/dL (2.4-3.5); Glucose 95 mg/dL (70-105); Osmolality,Calculated 283 (280-300); Potassium 3.4 mEq/L (3.5-5.1); Sodium 138 mEq/L (136-145); eGFR For African Americans > 60 (> 60); eGFR For Non-African Americans > 60 (> 60)
[2022-03-04] MEDS: *HR* Enoxaparin 40 MG/0.4 ML SYRINGE SQ SCH (05:34)
[2022-03-04 06:03] LABS: Bacteria,Urine Few per hpf (None-Few); Bilirubin,Urine Negative (Negative); Blood,Urine Negative (Negative); Clarity,Urine Clear (Clear); Color,Urine Light-Yellow (Yellow); Glucose,Urine (UA) Normal (Normal); Hyaline Casts,Urine Few per lpf (None Seen); Ketones,Urine Negative (Negative); Leukocyte Esterase,Urine Trace (Negative); Mucus,Urine Few per lpf (None-Few); Nitrite,Urine Negative (Negative); Protein,Urine Trace mg/dL (Neg-Trace); RBC,Urine 0-3 per hpf (0-3); Specific Gravity,Urine 1.013 (1.010-1.025); Squamous Epithelial Cell,Urine Few per hpf (None-Few); Urobilinogen,Urine Normal (Normal)
[2022-03-04] MEDS: BuPROPion XL (24 HR) 150 MG TABLET PO SCH (08:02)
[2022-03-04] MEDS: CeFAZolin 2,000 MG/120 ML BAG IVPB SCH ×2 (08:03→16:30)
[2022-03-04] MEDS: Magnesium Oxide 400 MG TABLET PO SCH (08:03)
[2022-03-04] MEDS: *HR* HYDROcodone/Acet 5/325 mg TABLET PO PRN ×3 (08:06→22:12)
[2022-03-04 08:27] LABS: Amphetamine Screen,Urine Negative ng/mL (Cutoff=1000); Barbiturate Screen,Urine Negative ng/mL (Cutoff=200); Benzodiazepines Screen,Urine Positive ng/mL (Cutoff=200); Cannabinoid Screen,Urine Positive ng/mL (Cutoff = 50); Cocaine Screen,Urine Negative ng/mL (Cutoff= 300); Opiate Screen,Urine Negative ng/mL (Cutoff=300); Phencyclidine Screen,Urine Negative ng/mL (Cutoff=25)
[2022-03-05] MEDS: CeFAZolin 2,000 MG/120 ML BAG IVPB SCH ×3 (00:13→16:37)
[2022-03-05 05:06] LABS: Basophils % 0.6 %; Eosinophils # 0.3 K/mcL (0.0-0.6); Eosinophils % 3.9 %; Hematocrit 35.4 % (35.3-44.9); Hemoglobin 11.2 g/dL (11.5-15.4); Immature Granulocytes % 0.4 % (0-4); Lymphocytes % 29.3 %; Mean Corpuscular HGB Conc 31.6 g/dL (31.6-35.5); Mean Corpuscular Hemoglobin 24.7 pg (28.0-33.3); Mean Platelet Volume 10.3 fL (9.4-12.4); Monocytes # 0.6 K/mcL (0.0-1.3); Monocytes % 8.6 %; Platelet Count 282 K/mcL (140-400); Red Blood Count 4.54 M/mcL (3.82-4.97); Red Cell Distribution Width 17.6 % (11.5-14.5); Segmented Neutrophils % 57.2 %
[2022-03-05 05:10] LABS: White Blood Count 6.9 K/mcL (4.3-11.1)
[2022-03-05] MEDS: *HR* Enoxaparin 40 MG/0.4 ML SYRINGE SQ SCH (05:27)
[2022-03-05 06:29] LABS: BUN/Creatinine Ratio 12 (6-26); Blood Urea Nitrogen 7 mg/dL (6-20); Calcium 8.6 mg/dL (8.6-10.3); Carbon Dioxide 31 mEq/L (23-29); Chloride 104 mEq/L (98-107); Glucose 86 mg/dL (70-105); Osmolality,Calculated 283 (280-300); Potassium 4.3 mEq/L (3.5-5.1); Sodium 138 mEq/L (136-145); eGFR For African Americans > 60 (> 60); eGFR For Non-African Americans > 60 (> 60)
[2022-03-05] MEDS: BuPROPion XL (24 HR) 150 MG TABLET PO SCH (07:54)
[2022-03-05] MEDS: Magnesium Oxide 400 MG TABLET PO SCH (09:17)
[2022-03-05] MEDS: *HR* HYDROcodone/Acet 5/325 mg TABLET PO PRN ×3 (10:07→22:45)
[2022-03-06] MEDS: CeFAZolin 2,000 MG/120 ML BAG IVPB SCH ×4 (00:15→23:33)
[2022-03-06] MEDS: *HR* Enoxaparin 40 MG/0.4 ML SYRINGE SQ SCH (05:37)
[2022-03-06] MEDS: BuPROPion XL (24 HR) 150 MG TABLET PO SCH (08:47)
[2022-03-06] MEDS: *HR* HYDROcodone/Acet 5/325 mg TABLET PO PRN ×3 (08:48→23:32)
[2022-03-06] MEDS: Magnesium Oxide 400 MG TABLET PO SCH (08:48)
[2022-03-06] MEDS ORDERED: Iopamidol - 370 500 ML MLS IVP ONE (12:01)
[2022-03-07] MEDS: *HR* Enoxaparin 40 MG/0.4 ML SYRINGE SQ SCH (03:46)
[2022-03-07] MEDS: *HR* HYDROcodone/Acet 5/325 mg TABLET PO PRN ×3 (05:28→17:46)
[2022-03-07] MEDS: CeFAZolin 2,000 MG/120 ML BAG IVPB SCH ×2 (07:54→16:34)
[2022-03-07] MEDS: BuPROPion XL (24 HR) 150 MG TABLET PO SCH (07:55)
[2022-03-07] MEDS: Magnesium Oxide 400 MG TABLET PO SCH (07:55)
[2022-03-08] MEDS: CeFAZolin 2,000 MG/120 ML BAG IVPB SCH ×3 (00:04→15:38)
[2022-03-08] MEDS: *HR* HYDROcodone/Acet 5/325 mg TABLET PO PRN ×4 (00:04→22:03)
[2022-03-08] MEDS: *HR* Enoxaparin 40 MG/0.4 ML SYRINGE SQ SCH (05:58)
[2022-03-08] MEDS: Magnesium Oxide 400 MG TABLET PO SCH (08:24)
[2022-03-08 11:31] LABS: Amphetamine Screen,Urine Negative ng/mL (Cutoff=1000); Barbiturate Screen,Urine Negative ng/mL (Cutoff=200); Benzodiazepines Screen,Urine Positive ng/mL (Cutoff=200); Cannabinoid Screen,Urine Positive ng/mL (Cutoff = 50); Cocaine Screen,Urine Negative ng/mL (Cutoff= 300); Opiate Screen,Urine Positive ng/mL (Cutoff=300); Phencyclidine Screen,Urine Negative ng/mL (Cutoff=25)
[2022-03-08] MEDS: Ibuprofen 400 MG TABLET PO PRN (20:23)
[2022-03-09] MEDS: CeFAZolin 2,000 MG/120 ML BAG IVPB SCH ×3 (00:03→15:28)
[2022-03-09] MEDS: *HR* Enoxaparin 40 MG/0.4 ML SYRINGE SQ SCH (05:06)
[2022-03-09] MEDS: Magnesium Oxide 400 MG TABLET PO SCH (09:20)
[2022-03-09] MEDS: *HR* HYDROcodone/Acet 5/325 mg TABLET PO PRN ×2 (09:25→15:28)
[2022-03-09 10:03] LABS: Basophils % 0.4 %; Eosinophils # 0.3 K/mcL (0.0-0.6); Eosinophils % 2.3 %; Hematocrit 36.9 % (35.3-44.9); Hemoglobin 11.7 g/dL (11.5-15.4); Immature Granulocytes % 0.4 % (0-4); Lymphocytes # 1.8 K/mcL (0.6-4.6); Lymphocytes % 16.2 %; Mean Corpuscular HGB Conc 31.7 g/dL (31.6-35.5); Mean Corpuscular Hemoglobin 24.6 pg (28.0-33.3); Mean Corpuscular Volume 77.5 fL (83.0-100.0); Mean Platelet Volume 10.5 fL (9.4-12.4); Monocytes # 0.8 K/mcL (0.0-1.3); Monocytes % 7.7 %; Neutrophils # 7.9 K/mcL (1.6-8.9); Platelet Count 286 K/mcL (140-400); Red Blood Count 4.76 M/mcL (3.82-4.97); Red Cell Distribution Width 17.6 % (11.5-14.5)
[2022-03-09 10:04] LABS: White Blood Count 10.8 K/mcL (4.3-11.1)
[2022-03-09 10:21] LABS: BUN/Creatinine Ratio 22 (6-26); Blood Urea Nitrogen 13 mg/dL (6-20); Calcium 9.4 mg/dL (8.6-10.3); Carbon Dioxide 27 mEq/L (23-29); Chloride 100 mEq/L (98-107); Glucose 137 mg/dL (70-105); Osmolality,Calculated 282 (280-300); Potassium 3.9 mEq/L (3.5-5.1); Sodium 135 mEq/L (136-145); eGFR For African Americans > 60 (> 60); eGFR For Non-African Americans > 60 (> 60)
[2022-03-09 14:54] VITALS: BP 140/111; PULSE 117; TEMP 98.2; O2SAT 98
== END 2022-03-09 21:30 | DRG 279 ==
LOC: 3BNU 08:37 → EMEROOARM 08:37 → 3BNU 15:02 → SUATTDRO 15:07
PROVIDERS: ADMIT Internal Medicine; ATTEND Registered Nurse